=== PATIENT | male | born 1995 | race American Indian/Alaskan Native ===

== ENCOUNTER 2017-06-03 13:42 | Emergency (ER) | payer SELFPAY ==
[2017-06-03 13:54] VITALS: BP 104/45
--- NOTE | 2017-06-03 14:29 | XRay Report ---
Right wrist 3 views. History: Pain and swelling after trauma. Findings: There is a nondisplaced transverse fracture of the distal radial metaphysis. The ulnar styloid is intact. There is mild posterior soft tissue swelling. There is no dislocation. The carpal bones are normal. Impression: Nondisplaced distal radial fracture.
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
== END 2017-06-03 17:45 | disposition home or self-care (01) ==
LOC: ED 13:42
DX: S52.501A Unspecified fracture of the lower end of right radius, initial encounter for closed fracture (principal); V89.2XXA Person injured in unspecified motor-vehicle accident, traffic, initial encounter; Y93.89 Activity, other specified; Y92.89 Other specified places as the place of occurrence of the external cause; Y99.8 Other external cause status
CPT/HCPCS: 99283

== ENCOUNTER 2021-01-30 19:03 | Emergency (ER) | payer OTHER | END 2021-01-30 20:30 | disposition left against medical advice (07) | LOC: ED 19:03 | DX: N19 Unspecified kidney failure (principal); Z53.21 Procedure and treatment not carried out due to patient leaving prior to being seen by health care provider ==

== ENCOUNTER 2021-02-01 22:24 | Emergency (ER) | payer SELFPAY ==
[2021-02-01] MEDS ORDERED: LORazepam 1 MG TAB PO ONE (23:20)
[2021-02-01 23:44] LABS: Basophils # (Auto) 0.1 K/mm3 (0.0-0.1); Basophils % (Auto) 0.9 % (0.0-1.8); Eosinophils % (Auto) 0.4 % (0.0-4.3); Hematocrit 42.1 % (35.5-45.6); Hemoglobin 14.8 gm/dl (11.8-15.2); Lymphocytes # (Auto) 1.1 K/mm3 (1.2-5.4); Lymphocytes % (Auto) 10.6 % (13.4-35.0); Mean Corpuscular HGB Conc 35 % (32-34); Mean Corpuscular Volume 95 fl (84-94); Monocytes # (Auto) 0.7 K/mm3 (0.0-0.8); Monocytes % (Auto) 6.8 % (0.0-7.3); Platelet Count 218 K/mm3 (140-440); Red Blood Count 4.44 M/mm3 (3.65-5.03); Red Cell Distribution Width 13.3 % (13.2-15.2)
[2021-02-01 23:53] LABS: BUN/Creatinine Ratio 16; Blood Urea Nitrogen 23 mg/dL (9-20); Calcium 9.8 mg/dL (8.4-10.2); Hemolysis Index 4
[2021-02-02] MEDS ORDERED: SODIUM CHLORIDE 0.9% 1000 ML 1,000 ML IV ONE (00:51)
--- NOTE | 2021-02-02 00:51 | Emergency Department Report ---
ED Psych HPI - General Chief Complaint: Psych Stated Complaint: ANXIETY Time Seen by Provider: 02/01/21 23:09 Source: patient, family Mode of arrival: Ambulatory - History of Present Illness Initial Comments: Patient is a 25-year-old F [place] male who is being brought in for severe anxiety and agitation. Patient states that he was sick with some nausea vomiting last week. States he was taken to [facility] for low facility given some fluids and he states since then he has been very agitated. Patient feels like he cannot sit still and is very nervous. Patient also appears very paranoid is reluctant to answer great deal questions. - Related Data Previous Rx's Medication Instructions Recorded Last Taken Type Ibuprofen [Motrin] 600 mg PO Q8H PRN #30 tablet 06/03/17 Unknown Rx Ondansetron [Zofran Odt] 4 mg PO Q4HR PRN #20 tab.rapdis 05/09/19 Unknown Rx Promethazine [Phenergan TAB] 25 mg PO Q6HR PRN #20 tab 05/09/19 Unknown Rx Allergies Allergy/AdvReac Type Severity Reaction Status Date / Time No Known Allergies Allergy Unverified 06/03/17 13:51 ED Review of Systems ROS: Stated complaint: ANXIETY Other details as noted in HPI Comment: All other systems reviewed and negative ED Past Medical Hx - Past Medical History Previous Medical History?: No Hx GERD: Yes - Surgical History Past Surgical History?: No - Social History Smoking Status: Current Some Day Smoker Substance Use Type: Marijuana - Medications Home Medications: Home Medications Medication Instructions Recorded Confirmed Last Taken Type Ibuprofen [Motrin] 600 mg PO Q8H PRN #30 tablet 06/03/17 Unknown Rx Ondansetron [Zofran Odt] 4 mg PO Q4HR PRN #20 tab.rapdis 05/09/19 Unknown Rx Promethazine [Phenergan TAB] 25 mg PO Q6HR PRN #20 tab 05/09/19 Unknown Rx ED Physical Exam - General Limitations: No Limitations General appearance: alert, in no apparent distress - Head Head exam: Present: atraumatic, normocephalic - Eye Eye exam: Present: normal appearance, PERRL, EOMI - ENT ENT exam: Present: mucous membranes moist - Neck Neck exam: Present: normal inspection - Respiratory Respiratory exam: Present: normal lung sounds bilaterally. Absent: respiratory distress, wheezes, rales, rhonchi - Cardiovascular Cardiovascular Exam: Present: regular rate, normal rhythm, normal heart sounds. Absent: systolic murmur, diastolic murmur, rubs, gallop - GI/Abdominal GI/Abdominal exam: Present: soft, normal bowel sounds. Absent: distended, tenderness, guarding - Rectal Rectal exam: Present: deferred - Extremities Exam Extremities exam: Present: normal inspection - Back Exam Back exam: Present: normal inspection - Neurological Exam Neurological exam: Present: alert, oriented X3 - Psychiatric Psychiatric exam: Present: normal affect, normal mood - Skin Skin exam: Present: warm, dry, intact, normal color. Absent: rash ED Course Vital Signs 02/01/21 02/01/21 02/01/21 23:18 23:21 23:22 Temperature 99 F 97.4 F L Pulse Rate 99 H 80 Respiratory 18 18 18 Rate Blood Pressure 132/98 Blood Pressure 110/74 [Left] O2 Sat by Pulse 99 98 100 Oximetry - Reevaluation(s) Reevaluation #1: 02/02/21 00:51 Patient sodium and chloride level is low. Is consistent with some dehydration he does have a creatinine of 1.4 which is abnormal for his age. I will attempt to start IV on the patient and give him some fluids. Patient believes that and IV hydration place is the reason why he is feeling the way he does now. Still pending a urine. We will add a CK on the patient as well. ED Medical Decision Making - Lab Data Result diagrams: 02/01/21 23:16 02/01/21 23:16 Lab Results 02/01/21 02/01/21 02/01/21 Range/Units 23:16 23:16 23:16 WBC 10.8 (4.5-11.0) K/mm3 RBC 4.44 (3.65-5.03) M/mm3 Hgb 14.8 (11.8-15.2) gm/dl Hct 42.1 (35.5-45.6) % MCV 95 H (84-94) fl MCH 33 H (28-32) pg MCHC 35 H (32-34) % RDW 13.3 (13.2-15.2) % Plt Count 218 (140-440) K/mm3 Lymph % (Auto) 10.6 L (13.4-35.0) % [place] % (Auto) 6.8 (0.0-7.3) % Eos % (Auto) 0.4 (0.0-4.3) % Baso % (Auto) 0.9 (0.0-1.8) % Lymph # (Auto) 1.1 L (1.2-5.4) K/mm3 [place] # (Auto) 0.7 (0.0-0.8) K/mm3 Eos # (Auto) 0.0 (0.0-0.4) K/mm3 Baso # (Auto) 0.1 (0.0-0.1) K/mm3 Seg Neutrophils % 81.3 H (40.0-70.0) % Seg Neutrophils # 8.8 H (1.8-7.7) K/mm3 Sodium 130 L (137-145) mmol/L Potassium 4.0 (3.6-5.0) mmol/L Chloride 90.6 L (98-107) mmol/L Carbon Dioxide 28 (22-30) mmol/L Anion Gap 15 mmol/L BUN 23 H (9-20) mg/dL Creatinine 1.4 H (0.8-1.3) mg/dL Estimated GFR > 60 ml/min BUN/Creatinine Ratio 16 % Glucose 191 H (75-100) mg/dL Calcium 9.8 (8.4-10.2) mg/dL Salicylates < 0.3 L (2.8-20.0) mg/dL Acetaminophen (10.0-30.0) ug/mL Plasma/Serum Alcohol (0-0.07) % 02/01/21 02/01/21 Range/Units 23:16 23:16 WBC (4.5-11.0) K/mm3 RBC (3.65-5.03) M/mm3 Hgb (11.8-15.2) gm/dl Hct (35.5-45.6) % MCV (84-94) fl MCH (28-32) pg MCHC (32-34) % RDW (13.2-15.2) % Plt Count (140-440) K/mm3 Lymph % (Auto) (13.4-35.0) % [place] % (Auto) (0.0-7.3) % Eos % (Auto) (0.0-4.3) % Baso % (Auto) (0.0-1.8) % Lymph # (Auto) (1.2-5.4) K/mm3 [place] # (Auto) (0.0-0.8) K/mm3 Eos # (Auto) (0.0-0.4) K/mm3 Baso # (Auto) (0.0-0.1) K/mm3 Seg Neutrophils % (40.0-70.0) % Seg Neutrophils # (1.8-7.7) K/mm3 Sodium (137-145) mmol/L Potassium (3.6-5.0) mmol/L Chloride (98-107) mmol/L Carbon Dioxide (22-30) mmol/L Anion Gap mmol/L BUN (9-20) mg/dL Creatinine (0.8-1.3) mg/dL Estimated GFR ml/min BUN/Creatinine Ratio % Glucose (75-100) mg/dL Calcium (8.4-10.2) mg/dL Salicylates (2.8-20.0) mg/dL Acetaminophen 5.0 L (10.0-30.0) ug/mL Plasma/Serum Alcohol < 0.01 (0-0.07) % Critical care attestation.: If time is entered above; I have spent that time in minutes in the direct care of this critically ill patient, excluding procedure time. ED Disposition Condition: Stable Referrals: PRIMARY CARE, [Primary Care Provider] - 3-5 Days
[2021-02-02 01:42] LABS: Bilirubin,Urine NEG (Negative); Blood,Urine NEG (Negative); Color,Urine Yellow (Yellow); Mucus,Urine FEW /HPF; Protein,Urine <15 mg/dL mg/dL (Negative); Urobilinogen,Urine < 2.0 mg/dL (<2.0)
[2021-02-02 01:51] LABS: Amphetamine Screen,Urine PRESUMPTIVE NEGATIVE; Benzodiazepines Screen,Urine PRESUMPTIVE NEGATIVE; Cannabinoid Screen,Urine PRESUMPTIVE POSITIVE; Cocaine Screen,Urine PRESUMPTIVE NEGATIVE; Methadone Screen,Urine PRESUMPTIVE NEGATIVE; Opiate Screen,Urine PRESUMPTIVE NEGATIVE
--- NOTE | 2021-02-02 09:02 | Consultation ---
History of Present Illness - Reason for Consult Consult date: 02/02/21 Reason for consult: psychosis - History of Present Psychiatric Illness Per ER Note: Patient is a 25-year-old F [place] male who is being brought in for severe anxiety and agitation. Patient states that he was sick with some nausea vomiting last week. States he was taken to [facility] for low facility given some fluids and he states since then he has been very agitated. Patient feels l chuck he cannot sit still and is very nervous. Patient also appears very paranoid is reluctant to answer great deal questions. Rolo Pederson is a 25y/o male patient who states he came to the ER because he "was having an episode." The patient is tearful and seems very depressed. His affect if flat. He doesn't answer questions directly. He says "yall are not treating me right. I came in here to get help not to get forced to stay here." He would not tell me about his "episode." He says "I don't trust nobody." The patient then starts telling me that he "went to some [facility] for fluids and it went to my head." I ask him again to explain what he meant by an episode. He replies "I'm not telling you anything. That's going to give you more reasons to keep me here." The patient then starts to cry harder. He would not give consent for me to call his mother. He says "she doesn't understand me just like you don't." He denies having any psych history or being on any medications. The patient also denies SI/HI, but then states "I shouldn't even answer this." Psych History Diagnoses: Denies Suicide attempts or Self-harm behavior:Denies Prior psychiatric hospitalizations: Denies Substance Abuse history:Denies Previous psychiatric medications tried:Denies Outpatient treatment: Denies PAST MEDICAL HISTORY: none reported Family Psychiatric History: None reported or documented SOCIAL HISTORY Marital Status: Single Living Arrangements: with mother Employment Status: unemployed Access to guns/weapons: Denies Education: History of Abuse: Denies Legal History: none reported REVIEW OF SYSTEMS Constitutional: Negative for weight loss ENT: Negative for stridor Respiratory: Negative for cough or hemoptysis All other systems reviewed and are negative MENTAL STATUS EXAMINATION General Appearance and Behavior: Age appropriate, good hygiene, wearing appropriate clothes, sleeping, cooperative Cooperation: Participating Psychomotor Behavior: unremarkable and within normal limits Mood: Affect and affective range: flat, tearful Thought Process: illogical Thought Content: depression Speech: Normal volume, Regular rate and rhythm, Suicidal Ideation: Denies Homicidal Ideation:Denies Hallucinations: Denies Delusions: Paranoid Impulse Control: Questionable Insight and Judgment: Limited insight and poor judgment, Memory: Normal, Attention: Normal Orientation: Alert, oriented Assessment Acute Psychosis Treatment Plan 1013 Risperidone 0.5mg po BID Depakote DR 125mg po BID Continue previously prescribed medications The patient to comply with previously prescribed medications Risks, benefits and alternatives of medications discussed with the patient, questions answered and consent obtained from patient. PSYCHOTHERAPY: Supportive psychotherapy provided MEDICAL: Per primary team DELIRIUM PRECAUTIONS: Please re-orient patient frequently, keep lights on during the day, and minimize benzodiazepines and opiates as these medications could worsen patient's confusion. COPY TECHNICIAN: Defer to primary Disposition: Recommend acute psychiatric inpatient treatment. [facility] will provide patient with out patient resources. Will follow. Thank you for the consult. Please contact with any questions and/or concerns. Case staffed with Dr. Bee Medications and Allergies Allergies Allergy/AdvReac Type Severity Reaction Status Date / Time No Known Allergies Allergy Unverified 06/03/17 13:51 Home Medications Medication Instructions Recorded Confirmed Last Taken Type Ibuprofen [Motrin] 600 mg PO Q8H PRN #30 tablet 06/03/17 Unknown Rx Ondansetron [Zofran Odt] 4 mg PO Q4HR PRN #20 tab.rapdis 05/09/19 Unknown Rx Promethazine [Phenergan TAB] 25 mg PO Q6HR PRN #20 tab 05/09/19 Unknown Rx Mental Status Exam - Vital signs Last Vital Signs Temp 97.2 F L 02/02/21 01:52 Pulse 83 02/02/21 01:52 Resp 18 02/02/21 01:52 BP 116/66 02/02/21 01:52 Pulse Ox 99 02/02/21 01:52 Results Result Diagrams: 02/01/21 23:16 02/01/21 23:16 Abnormal lab results 02/01/21 02/01/21 02/01/21 Range/Units 23:16 23:16 23:16 MCV 95 H (84-94) fl MCH 33 H (28-32) pg MCHC 35 H (32-34) % Lymph % (Auto) 10.6 L (13.4-35.0) % Lymph # (Auto) 1.1 L (1.2-5.4) K/mm3 Seg Neutrophils % 81.3 H (40.0-70.0) % Seg Neutrophils # 8.8 H (1.8-7.7) K/mm3 Sodium 130 L (137-145) mmol/L Chloride 90.6 L (98-107) mmol/L BUN 23 H (9-20) mg/dL Creatinine 1.4 H (0.8-1.3) mg/dL Glucose 191 H (75-100) mg/dL Total Creatine Kinase (55-170) units/L Salicylates < 0.3 L (2.8-20.0) mg/dL Acetaminophen (10.0-30.0) ug/mL 02/01/21 02/01/21 Range/Units 23:16 23:16 MCV (84-94) fl MCH (28-32) pg MCHC (32-34) % Lymph % (Auto) (13.4-35.0) % Lymph # (Auto) (1.2-5.4) K/mm3 Seg Neutrophils % (40.0-70.0) % Seg Neutrophils # (1.8-7.7) K/mm3 Sodium (137-145) mmol/L Chloride (98-107) mmol/L BUN (9-20) mg/dL Creatinine (0.8-1.3) mg/dL Glucose (75-100) mg/dL Total Creatine Kinase 352 H (55-170) units/L Salicylates (2.8-20.0) mg/dL Acetaminophen 5.0 L (10.0-30.0) ug/mL All other labs normal.
[2021-02-02] MEDS: risperiDONE 0.25 MG TAB PO SCH ×3 (10:29→22:29)
[2021-02-02] MEDS: DIVALPROEX DR 125 MG TAB PO SCH ×3 (10:29→22:29)
--- NOTE | 2021-02-02 11:12 | Event Note ---
Date: 02/02/21 S: No events overnight O: Vital Signs - 8 hr 02/02/21 07:27 Temperature 98.6 F Pulse Rate 68 Respiratory 18 Rate Blood Pressure 112/70 [Left] O2 Sat by Pulse 100 Oximetry A: Acute psychosis P: 1013/awaiting inpatient psych placement
[2021-02-03] MEDS: DIVALPROEX DR 125 MG TAB PO SCH (09:47)
[2021-02-03] MEDS: risperiDONE 0.25 MG TAB PO SCH (09:47)
--- NOTE | 2021-02-03 10:05 | Progress Note ---
Subjective - Reason for Consult Consult date: 02/03/21 Reason for consult: depression - Chief Complaint Chief complaint: The patient was seen today. He appears severely depressed. His affect is flat. He immediately starts crying when I start to speak with him. He says "it's just a bad month for me. I lost a child a few years ago and it's been hard." He denies SI/HI, however the patient doesn't seem to be upfront about what's going on with him. He's also paranoid. He states he doesn't trust anyone. The patient gave me permission to speak with his mother. His mother says she doesn't feel safe with the patient coming back to her house. She says he was talking out of his head, and acting strange. She says the patient has been severely depressed and this was the first time he had a "real episode like this." She says he wasn't making any sense and acting strange. She says they don't have the best relationship but she doesn't believe he's telling the truth about what's going on. REVIEW OF SYSTEMS Constitutional: Negative for weight loss ENT: Negative for stridor Respiratory: Negative for cough or hemoptysis All other systems reviewed and are negative MENTAL STATUS EXAMINATION General Appearance and Behavior: Age appropriate, good hygiene, wearing appropriate clothes, sleeping, cooperative Cooperation: Participating Psychomotor Behavior: unremarkable and within normal limits Mood: Affect and affective range: flat, tearful Thought Process: illogical Thought Content: depression Speech: Normal volume, Regular rate and rhythm, Suicidal Ideation: Denies Homicidal Ideation:Denies Hallucinations: Denies Delusions: Paranoid Impulse Control: Questionable Insight and Judgment: Limited insight and poor judgment, Memory: Normal, Attention: Normal Orientation: Alert, oriented Assessment Acute Psychosis Treatment Plan 1013 Increase Risperidone 1mg po BID Depakote DR 125mg po BID Start Zoloft 25mg po daily Continue previously prescribed medications The patient to comply with previously prescribed medications Risks, benefits and alternatives of medications discussed with the patient, questions answered and consent obtained from patient. PSYCHOTHERAPY: Supportive psychotherapy provided MEDICAL: Per primary team DELIRIUM PRECAUTIONS: Please re-orient patient frequently, keep lights on during the day, and minimize benzodiazepines and opiates as these medications could worsen patient's confusion. COMMUNICATIONS DIRECTOR: Defer to primary Disposition: Recommend acute psychiatric inpatient treatment. Database Admin will provide patient with out patient resources. Will follow. Thank you for the consult. Please contact with any questions and/or concerns. Case staffed with Dr. Bee Mental Status Exam - Vital signs Last Vital Signs Temp 98.3 F 02/03/21 02:23 Pulse 80 02/03/21 02:23 Resp 16 02/03/21 02:23 BP 111/78 02/03/21 02:23 Pulse Ox 98 02/03/21 02:23
--- NOTE | 2021-02-03 10:37 | Event Note ---
Date: 02/03/21 S: "I feel sad but that's normal given my situation." Patient denies any SI, HI. He denies any further hallucinations. Patient states he feels as if the medication is working. States he has been able to get some needed rest while here. Patient is ready to go home. States he has a job working at a [employer] and does not want to lose it. Patient denies any previous psychiatric diagnosis. O: Vital signs stable. Patient is calm and cooperative. A: Acute psychosis P: Lorenza, psychiatry DISC PAD GRINDER, spoke with patient. States that during her assessment patient immediately started crying, was reluctant to speak with her, seemed to be holding back information. She states when she spoke with patient's mother, she relayed that patient has a longstanding psychiatric history, and a history of not taking his medication and not seeking help. Continue 1013.
[2021-02-03] MEDS: FLUoxetine 10 MG TAB PO SCH (12:00)
[2021-02-03 12:19] LABS: BUN/Creatinine Ratio 15; Blood Urea Nitrogen 15 mg/dL (9-20); Calcium 9.5 mg/dL (8.4-10.2); Hemolysis Index 11
--- NOTE | 2021-02-03 12:22 | Electrocardiograph Report ---
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
[2021-02-03] MEDS ORDERED: LORazepam 2 MG/ML VIAL IM ONE (13:45)
[2021-02-04] MEDS: DIVALPROEX DR 125 MG TAB PO SCH ×2 (02:56→10:16)
[2021-02-04] MEDS: risperiDONE 1 MG TAB PO SCH ×2 (02:56→10:17)
[2021-02-04 09:00] VITALS: BP 123/80
--- NOTE | 2021-02-04 09:27 | Progress Note ---
Subjective - Reason for Consult Consult date: 02/04/21 Reason for consult: depression - Chief Complaint Chief complaint: The patient was seen today. He appears to be feeling better. He still verbalized feeling depressed. He says "the meds are working and I need ongoing therapy." He says "the meds have been helping with my mood." The patient says, "when I came here I didn't really understand the process. I thought meds and a counselor." The patient denies SI/HI, he says "I was never that. Just depressed." I assured him that I just wanted what was best for him. The patient states he understood. He says "I know, but really this place makes me feel worse." The patient says he has to go to work tomorrow. 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 He denies hallucinations of any kind. REVIEW OF SYSTEMS Constitutional: Negative for weight loss ENT: Negative for stridor Respiratory: Negative for cough or hemoptysis All other systems reviewed and are negative MENTAL STATUS EXAMINATION General Appearance and Behavior: Age appropriate, good hygiene, wearing appropriate clothes, sleeping, cooperative Cooperation: Participating Psychomotor Behavior: unremarkable and within normal limits Mood: Affect and affective range: flat, tearful Thought Process: illogical Thought Content: depression Speech: Normal volume, Regular rate and rhythm, Suicidal Ideation: Denies Homicidal Ideation:Denies Hallucinations: Denies Delusions: Paranoid Impulse Control: Questionable Insight and Judgment: Limited insight and poor judgment, Memory: Normal, Attention: Normal Orientation: Alert, oriented Assessment Acute Psychosis Treatment Plan D/c 1013 Risperidone 1mg po BID Depakote DR 125mg po BID Zoloft 25mg po daily Continue previously prescribed medications The patient to comply with previously prescribed medications Risks, benefits and alternatives of medications discussed with the patient, questions answered and consent obtained from patient. PSYCHOTHERAPY: Supportive psychotherapy provided MEDICAL: Per primary team DELIRIUM PRECAUTIONS: Please re-orient patient frequently, keep lights on during the day, and minimize benzodiazepines and opiates as these medications could worsen patient's confusion. 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 Head Track Coach will provide patient with out patient resources. The patient is to establish and follow up with outpatient psych in 7 to 14 days upon discharge. The coal inspector to provide him with all necessary outpatient resources. Will sign off. Thank you for the consult. Please contact with any questions and/or concerns. Case staffed with Dr. Bee Mental Status Exam - Vital signs Last Vital Signs Temp 97.9 F 02/04/21 08:58 Pulse 77 02/04/21 08:58 Resp 18 02/04/21 08:58 BP 123/80 02/04/21 08:58 Pulse Ox 98 02/04/21 08:58
--- NOTE | 2021-02-04 09:50 | Emergency Department Report ---
Blank Doc - Documentation Documentation: Patient was resting this morning. Psychiatric services has evaluated the tobias ent and cleared the patient for discharge. It was not felt the patient represented a risk of self-harm at this time and could safely be discharged.
[2021-02-04] MEDS: FLUoxetine 10 MG TAB PO SCH (10:16)
== END 2021-02-04 10:18 | disposition home or self-care (01) ==
LOC: ED 22:24
DX: F41.8 Other specified anxiety disorders (principal); F60.0 Paranoid personality disorder; K21.9 Gastro-esophageal reflux disease without esophagitis; F17.290 Nicotine dependence, other tobacco product, uncomplicated; Z20.822 Contact with and (suspected) exposure to COVID-19
CPT/HCPCS: 36415; 80048; 80307; 81001; 82550; 85025; 93005; 96372; 99284; J2060; U0003; 80320; G0480

== ENCOUNTER 2021-05-22 21:51 | Emergency (ER) | payer SELFPAY ==
[2021-05-22] MEDS ORDERED: DICYCLOMINE 20 MG/2 ML INJ IM ONE (22:16)
[2021-05-22] MEDS ORDERED: SODIUM CHLORIDE 0.9% 1000 ML 1,000 ML IV ONE (22:16)
[2021-05-22] MEDS ORDERED: ONDANSETRON 4 MG/2 ML INJ IV ONE (22:16)
--- NOTE | 2021-05-22 22:19 | Event Note ---
ED Screening Note Date of service: 05/22/21 Time: 22:17 ED Screening Note: Is a 25-year-old male who presents with nausea vomiting diarrhea body aches cough x1 week states unable to tolerate p.o., last p.o. intake 3 days ago. Patient states history of GERD, psych depression. Patient endorses THC This initial assessment/diagnostic orders/clinical plan/treatment(s) is/are subject to change based on patients health status, clinical progression and re- assessment by fellow clinical providers in the ED. Further treatment and workup at subsequent clinical providers discretion. Patient/guardian urged not to elope from the ED as their condition may be serious if not clinically assessed and daryl bardales. Initial orders include: CBC, CMP Lipase, UA, IV, NS 1 liter, Javon Mendozayl
[2021-05-22 22:20] VITALS: BP 113/86
--- NOTE | 2021-05-22 22:48 | XRay Report ---
CHEST 1 VIEW INDICATION: cough fever cp. COMPARISON: None FINDINGS: SUPPORT DEVICES: None. HEART: Within normal limits. LUNGS/PLEURA: No acute air space or interstitial disease. ADDITIONAL FINDINGS: None. IMPRESSION: 1. No acute findings. Signer Name: Moses Mcmahon MD Signed: 05/22/2021 10:43 PM Workstation Name: [id number]
[2021-05-22 23:51] LABS: Basophils % (Auto) 0.4 % (0.0-1.8); Eosinophils % (Auto) 0.1 % (0.0-4.3); Lymphocytes # (Auto) 1.3 K/mm3 (1.2-5.4); Lymphocytes % (Auto) 11.6 % (13.4-35.0); Mean Corpuscular HGB Conc 33 % (32-34); Mean Corpuscular Volume 94 fl (84-94); Monocytes # (Auto) 1.3 K/mm3 (0.0-0.8); Monocytes % (Auto) 12.1 % (0.0-7.3); Platelet Count 244 K/mm3 (140-440); Red Blood Count 6.76 M/mm3 (3.65-5.03); Red Cell Distribution Width 13.9 % (13.2-15.2)
[2021-05-23 00:02] LABS: Hematocrit 63.3 % (35.5-45.6); Hemoglobin 21.1 gm/dl (11.8-15.2)
[2021-05-23 00:10] LABS: Albumin 5.7 g/dL (3.9-5); Calcium 10.6 mg/dL (8.4-10.2)
== END 2021-05-23 01:59 | disposition left against medical advice (07) ==
LOC: ED 21:51
DX: R11.2 Nausea with vomiting, unspecified (principal); Z53.21 Procedure and treatment not carried out due to patient leaving prior to being seen by health care provider
CPT/HCPCS: 36415; 71045; 80053; 83690; 85025

== ENCOUNTER 2021-05-24 11:05 | Inpatient (IN) | payer SELFPAY ==
--- NOTE | 2021-05-24 12:37 | Event Note ---
ED Screening Note Date of service: 05/24/21 Time: 12:28 ED Screening Note: 25-year-old -[place] male comes in complaining of severe abdominal pain. Patient reports that he has not been able to eat and has been nausea and vomiting for the last 10 days. It was noted review of patient's chart that he came in on the 11 and basic labs were ordered and it showed that his H&H was 21.1 and 63.3. All his liver functions were all abnormal and he had acute kidney injury. Patient did not stay to be evaluated. This initial assessment/diagnostic orders/clinical plan/treatment(s) is/are subject to change based on patients health status, clinical progression and re- assessment by fellow clinical providers in the ED. Further treatment and workup at subsequent clinical providers discretion. Patient/guardian urged not to elope from the ED as their condition may be serious if not clinically assessed and managed. Initial orders include: CBC CMP lipase urinalysis PT PTT BNP chest x-ray report given to
[2021-05-24] MEDS ORDERED: SODIUM CHLORIDE 0.9% 1000 ML 1,000 ML IV ONE ×2 (12:56)
[2021-05-24] MEDS ORDERED: fentaNYL 100 MCG/2 ML INJ IV ONE (12:56)
[2021-05-24] MEDS ORDERED: ONDANSETRON 4 MG/2 ML INJ IV ONE ×2 (12:56→18:10)
--- NOTE | 2021-05-24 13:00 | XRay Report ---
CHEST 2 VIEWS INDICATION: sob,cough and rales. COMPARISON: 05/22/2021 FINDINGS: Support devices: None. Heart: Heart size is within normal limits. A right aortic arch is suggested. Lungs/pleura: No acute air space or interstitial disease. No pleural abnormality or pneumothorax. Additional findings: None. IMPRESSION: No acute findings. A right aortic arch is suspected. Signer Name: Kevin Dueñas Jr, MD Signed: 05/24/2021 12:55 PM Workstation Name: [id number]
--- NOTE | 2021-05-24 13:04 | Emergency Department Report ---
HPI - General Chief Complaint: Abdominal Pain Time Seen by Provider: 05/24/21 11:17 - HPI HPI: MSE 6 The patient is a 25-year-old male present with a chief complaint of abdominal pain nausea vomiting. Patient states he has been "sick" for the past 10 days with symptoms consisting mostly of nausea vomiting and abdominal pain. Patient complains of periumbilical abdominal pain in addition to abdominal soreness from his frequent nausea vomiting. The patient states he has not eaten in 1 week and occasionally is able to keep down water. Patient denies having history of cough or rhinorrhea. Patient states he is uncertain if he had a fever. Patient denies diarrhea. Patient currently gets his abdominal pain a score of 7/10. Patient came to the ED 2 days ago but left without being seen ED Past Medical Hx - Past Medical History Previous Medical History?: Yes Hx GERD: Yes Additional medical history: mental health - Surgical History Past Surgical History?: No - Family History Family history: no significant - Social History Smoking Status: Never Smoker Substance Use Type: None (Denies illicit drug use) - Medications Home Medications: Home Medications Medication Instructions Recorded Confirmed Last Taken Type Ibuprofen [Motrin] 600 mg PO Q8H PRN #30 tablet 06/03/17 Unknown Rx Ondansetron [Zofran Odt] 4 mg PO Q4HR PRN #20 tab.rapdis 05/09/19 Unknown Rx Promethazine [Phenergan TAB] 25 mg PO Q6HR PRN #20 tab 05/09/[address] [DepaKOTE DR] 250 mg PO BID #60 tablet 02/04/21 Unknown Rx Sertraline [Zoloft] 50 mg PO QDAY #30 tablet 02/04/21 Unknown Rx risperiDONE [RisperDAL] 1 mg PO BID #60 tablet 02/04/21 Unknown Rx ED Review of Systems ROS: Stated complaint: ABD PAIN/VOMITNG Other details as noted in HPI Constitutional: fever (?) Eyes: denies: eye pain ENT: denies: throat pain Respiratory: denies: cough Cardiovascular: denies: chest pain Endocrine: no symptoms reported Gastrointestinal: abdominal pain, nausea, vomiting. denies: diarrhea Genitourinary: denies: dysuria Musculoskeletal: back pain Neurological: denies: headache Physical Exam - Physical Exam Vital Signs: Vital Signs 01/13/22 11:45 Pulse Rate 74 Respiratory 16 Rate Blood Pressure 114/79 [Left] O2 Sat by Pulse 99 Oximetry Physical Exam: GENERAL: The patient is well-developed well-nourished male lying on stretcher in position appearing to be in mild. [] HEENT: Normocephalic. Atraumatic. Extraocular motions are intact. Patient has moist mucous membranes. NECK: Supple. Trachea midline CHEST/LUNGS: Clear to auscultation. There is no respiratory distress noted. HEART/CARDIOVASCULAR: Regular. There is no tachycardia. There is no gallop rub or murmur. ABDOMEN: Abdomen is soft, with greatest tenderness in the periumbilical and right upper quadrant. Patient has normal bowel sounds. There is no abdominal distention. SKIN: There is no rash. There is no edema. There is no diaphoresis. NEURO: The patient is awake, alert, and oriented. The patient is cooperative. The patient has no focal neurologic deficits. The patient has normal speech. GCS 15 MUSCULOSKELETAL: There is CVA tenderness bilaterally. There is no evidence of acute injury. ED Course Vital Signs 05/24/21 11:45 Pulse Rate 74 Respiratory 16 Rate Blood Pressure 114/79 [Left] O2 Sat by Pulse 99 Oximetry ED Medical Decision Making - Lab Data Result diagrams: 05/24/21 12:22 05/24/21 12:23 Laboratory Tests 05/24/21 05/24/21 05/24/21 12:22 12:23 12:27 WBC 5.8 RBC 6.33 H Hgb 19.9 H Hct 58.5 H MCV 93 MCH 31 MCHC 34 RDW 13.3 Plt Count 211 Lymph % (Auto) 13.2 L [place] % (Auto) 11.7 H Eos % (Auto) 0.1 Baso % (Auto) 1.4 Lymph # (Auto) 0.8 L [place] # (Auto) 0.7 Eos # (Auto) 0.0 Baso # (Auto) 0.1 Seg Neutrophils % 73.6 H Seg Neutrophils # 4.2 PT 14.6 INR 1.03 APTT 32.6 Sodium 122 L Potassium 4.4 Chloride 78.5 L Carbon Dioxide 30 Anion Gap 18 BUN 34 H Creatinine 1.5 H Estimated GFR > 60 BUN/Creatinine Ratio 23 Glucose 99 Calcium 10.6 H Total Bilirubin 3.10 H AST 161 H ALT 73 H Alkaline Phosphatase 129 NT-Pro-B Natriuret Pep Total Protein 8.7 H Albumin 5.2 H Albumin/Globulin Ratio 1.5 Lipase 24 Urine Color Urine Turbidity Urine pH Ur Specific [place] Urine Protein Urine Glucose (UA) Urine Ketones Urine Blood Urine Nitrite Urine Bilirubin Urine Urobilinogen Ur Leukocyte Esterase Urine WBC (Auto) Urine RBC (Auto) U Epithel Cells (Auto) Urine Mucus Hepatitis A IgM Ab Hep Bs Antigen Hep B Core IgM Ab Hepatitis C Antibody 05/24/21 05/24/21 05/24/21 12:28 13:09 Unknown WBC RBC Hgb Hct MCV MCH MCHC RDW Plt Count Lymph % (Auto) [place] % (Auto) Eos % (Auto) Baso % (Auto) Lymph # (Auto) [place] # (Auto) Eos # (Auto) Baso # (Auto) Seg Neutrophils % Seg Neutrophils # PT INR APTT Sodium Potassium Chloride Carbon Dioxide Anion Gap BUN Creatinine Estimated GFR BUN/Creatinine Ratio Glucose Calcium Total Bilirubin AST ALT Alkaline Phosphatase NT-Pro-B Natriuret Pep 42.82 Total Protein Albumin Albumin/Globulin Ratio Lipase Urine Color Yellow Urine Turbidity Clear Urine pH 6.0 Ur Specific [place] 1.021 Urine Protein 30 mg/dl Urine Glucose (UA) Neg Urine Ketones 20 Urine Blood Mod Urine Nitrite Neg Urine Bilirubin Neg Urine Urobilinogen < 2.0 Ur Leukocyte Esterase Neg Urine WBC (Auto) 1.0 Urine RBC (Auto) 2.0 U Epithel Cells (Auto) < 1.0 Urine Mucus Few Hepatitis A IgM Ab Non-reactive Hep Bs Antigen Nonreactive Hep B Core IgM Ab Non-reactive Hepatitis C Antibody Non-reactive Monospot test pending - Radiology Data Radiology results: report reviewed (CT abdomen pelvis, chest x-ray), image reviewed (CT abdomen pelvis, chest x-ray) interpreted by me: Chest x-ray-no definite focal infiltrates, no pneumothorax [facility] [address] [place] [address] XRay Report Signed Patient: JOSE ROBERTO EDGE MR #: [id number] : 04/27/1957 Acct:[id number] Age/Sex: 64 / M ADM Date: 05/24/21 Loc: ED At [facility] Dr: Ordering Physician: KRYSTLE MONIQUE MD Date of Service: 05/24/21 Procedure(s): XR chest 1V ap Accession Number(s): [id number] cc: KRYSTLE MONIQUE MD Fluoro Time In Minutes: CHEST 1 VIEW 1214 hours INDICATION: Status post cardiac arrest. COMPARISON: None FINDINGS: Support devices: An endotracheal tube has been inserted which terminates 5.3 cm superior to the elder. Cardiac defibrillator pads are in place. Heart: Heart size is within normal limits. CABG changes are suspected. Lungs/Pleura: The lungs are clear with no evidence for infiltrate, pleural fluid or pneumothorax. Additional findings: None. IMPRESSION: The endotracheal tube terminates 5.3 cm superior to the elder. No acute process is appreciated in the chest. Signer Name: Kevin Dueñas Jr, MD Signed: 05/24/2021 12:55 PM Workstation Name: [id number] Transcribed By: TTR Dictated By: KEVIN DUEÑAS JR, MD Electronically Authenticated By: KEVIN DUEÑAS JR, MD Signed Date/Time: 05/24/21 1255 DD/ 1253 TD/TT: Print Cancel [address] [address] XRay Report Signed Patient: PIERO ABDI MR#: [id number] : 1995 Acct:[id number] Age/Sex: 25 / M ADM Date: 05/24/21 Loc: ED Attending Dr: Ordering Physician: TRISTA HOOD Date of Service: 05/24/21 Procedure(s): XR chest routine 2V Accession Number(s): [id number] cc: TRISTA HOOD Fluoro Time In Minutes: CHEST 2 VIEWS INDICATION: sob,cough and rales. COMPARISON: 05/22/2021 FINDINGS: Support devices: None. Heart: Heart size is within normal limits. A right aortic arch is suggested. Lungs/pleura: No acute air space or interstitial disease. No pleural abnormality or pneumothorax. Additional findings: None. IMPRESSION: No acute findings. A right aortic arch is suspected. Signer Name: Kevin Dueñas Jr, MD Signed: 05/24/2021 12:55 PM Workstation Name: [id number] Transcribed By: TTR Dictated By: KEVIN DUEÑAS JR, MD Electronically Authenticated By: KEVIN DUEÑAS JR, MD Signed Date/Time: 05/24/211254 DD/ 54 TD/TT: Print Cancel - Differential Diagnosis Hepatitis, small bowel obstruction, pancreatitis, dehydration Critical care attestation.: If time is entered above; I have spent that time in minutes in the direct care of this critically ill patient, excluding procedure time. ED Disposition Clinical Impression: Intractable nausea and vomiting, Hyponatremia, Dehydration, Transaminitis, Acute abdominal pain Disposition: ADMITTED INPATIENT Is pt being admited?: Yes Does the pt Need Aspirin: No Condition: Fair Referrals: PRIMARY CARE, [Primary Care Provider] - 3-5 Days Time of Disposition: 15:11 (Hospitalist notified (Dr. Greenfield))
[2021-05-24 13:36] LABS: Basophils # (Auto) 0.1 K/mm3 (0.0-0.1); Basophils % (Auto) 1.4 % (0.0-1.8); Eosinophils % (Auto) 0.1 % (0.0-4.3); Hematocrit 58.5 % (35.5-45.6); Hemoglobin 19.9 gm/dl (11.8-15.2); Lymphocytes # (Auto) 0.8 K/mm3 (1.2-5.4); Lymphocytes % (Auto) 13.2 % (13.4-35.0); Mean Corpuscular HGB Conc 34 % (32-34); Mean Corpuscular Volume 93 fl (84-94); Monocytes # (Auto) 0.7 K/mm3 (0.0-0.8); Monocytes % (Auto) 11.7 % (0.0-7.3); Platelet Count 211 K/mm3 (140-440); Red Blood Count 6.33 M/mm3 (3.65-5.03); Red Cell Distribution Width 13.3 % (13.2-15.2)
[2021-05-24 13:52] LABS: Alanine Aminotransferase 73 units/L (7-56); Albumin 5.2 g/dL (3.9-5); BUN/Creatinine Ratio 23; Blood Urea Nitrogen 34 mg/dL (9-20); Calcium 10.6 mg/dL (8.4-10.2); Hemolysis Index 23
[2021-05-24 14:06] LABS: Hepatitis C Virus Antibody Non-Reactive (NonReactive)
[2021-05-24 14:08] LABS: Hepatitis B Surface Antigen Nonreactive (Negative)
[2021-05-24 14:29] LABS: Bilirubin,Urine NEG (Negative); Blood,Urine MOD (Negative); Color,Urine Yellow (Yellow); Mucus,Urine FEW /HPF; Urobilinogen,Urine < 2.0 mg/dL (<2.0)
--- NOTE | 2021-05-24 15:02 | Cat Scan Report ---
CT ABDOMEN AND PELVIS WITH CONTRAST INDICATION / CLINICAL INFORMATION: Periumbilical abdominal pain, intractable nausea omni 300 100ml. TECHNIQUE: Axial CT images were obtained through the abdomen and pelvis after 100 cc of Omnipaque 300 IV contras t. Sagittal and coronal reformatted images. All CT scans at this location are performed using CT dose reduction for ALARA by means of automated exposure control. COMPARISON: None available. FINDINGS: LOWER CHEST: No significant abnormality. LIVER: No significant abnormality. GALLBLADDER: No significant abnormality. BILE DUCTS: No significant abnormality. PANCREAS: No significant abnormality. SPLEEN: No significant abnormality. ADRENALS: No significant abnormality. RIGHT KIDNEY and URETER: No significant abnormality. LEFT KIDNEY and URETER: No significant abnormality. STOMACH and SMALL BOWEL: No significant abnormality. COLON: No significant abnormality. APPENDIX: Not identified. No inflammatory changes in the right lower quadrant are appreciated to sugg est appendicitis. PERITONEUM: No free fluid. No free air. No fluid collection. LYMPH NODES: No significant adenopathy. AORTA and ARTERIES: No significant abnormality. IVC and VEINS: No significant abnormality. URINARY BLADDER: No significant abnormality. REPRODUCTIVE ORGANS: No significant abnormality. ADDITIONAL FINDINGS: None. SKELETAL SYSTEM: No significant abnormality. IMPRESSION: No significant abnormality. Signer Name: Kevin Dueñas Jr, MD Signed: 05/24/2021 2:57 PM Workstation Name: [id number]
[2021-05-24 15:04] LABS: INR 1.03 (0.87-1.13)
[2021-05-24 15:05] LABS: Partial Thromboplastin Time 32.6 Sec. (24.2-36.6)
--- NOTE | 2021-05-25 02:01 | History and Physical Report ---
History of Present Illness Date of examination: 05/24/21 Date of admission: 05/24/2021 Chief complaint: Persistent vomiting for 10 days History of present illness: 25-year-old male with history of mental health disease on Depakote Zoloft and Risperdal comes in for vomiting for the past 10 days. Nausea and vomiting associated with diffuse abdominal pain. Vomiting about 6-8 times a day. Patient states he has not eaten for 1 week and unable to keep anything down. Patient is on Motrin. Denies diarrhea. No fever or chills. No exposure to COVID. Vaccination status not known. - Past Medical History Previous Medical History?: Yes --GERD: Yes Additional medical history: mental health - Surgical History Past Surgical History?: No - Family History Family history: no significant - Social History Smoking Status: Never Smoker Substance Use Type: None (Denies illicit drug use) - Medications Home Medications: Home Medications Medication Instructions Recorded Confirmed Last Taken Type Ibuprofen [Motrin] 600 mg PO Q8H PRN #30 tablet 06/03/17 Unknown Rx Ondansetron [Zofran Odt] 4 mg PO Q4HR PRN #20 tab.rapdis 05/09/19 Unknown Rx Promethazine [Phenergan TAB] 25 mg PO Q6HR PRN #20 tab 05/09/[address] [DepaKOTE DR] 250 mg PO BID #60 tablet 02/04/21 Unknown Rx Sertraline [Zoloft] 50 mg PO QDAY #30 tablet 02/04/21 Unknown Rx risperiDONE [RisperDAL] 1 mg PO BID #60 tablet 02/04/21 Unknown Rx Review of Systems ROS: Stated complaint: ABD PAIN/VOMITNG Other details as noted in HPI Constitutional: fever (?) Eyes: denies: eye pain ENT: denies: throat pain Respiratory: denies: cough Cardiovascular: denies: chest pain Endocrine: no symptoms reported Gastrointestinal: abdominal pain, nausea, vomiting. denies: diarrhea Genitourinary: denies: dysuria Musculoskeletal: back pain Neurological: denies: headache Medications and Allergies Allergies Allergy/AdvReac Type Severity Reaction Status Date / Time No Known Allergies Allergy Unverified 06/03/17 13:51 Home Medications Medication Instructions Recorded Confirmed Last Taken Type Ibuprofen [Motrin] 600 mg PO Q8H PRN #30 tablet 06/03/17 Unknown Rx Ondansetron [Zofran Odt] 4 mg PO Q4HR PRN #20 tab.rapdis 05/09/19 Unknown Rx Promethazine [Phenergan TAB] 25 mg PO Q6HR PRN #20 tab 05/09/[address] [DepaKOTE DR] 250 mg PO BID #60 tablet 02/04/21 Unknown Rx Sertraline [Zoloft] 50 mg PO QDAY #30 tablet 02/04/21 Unknown Rx risperiDONE [RisperDAL] 1 mg PO BID #60 tablet 02/04/21 Unknown Rx Exam - Constitutional Vitals: Temp Pulse Resp BP Pulse Ox 97.5 F L 64 14 127/85 100 05/24/21 14:06 05/24/21 14:06 05/24/21 14:22 05/24/21 14:06 05/24/21 14:06 General appearance: Present: no acute distress, well-nourished - EENT Eyes: Present: PERRL ENT: hearing intact, clear oral mucosa - Neck Neck: Present: supple, normal ROM - Respiratory Respiratory effort: normal Respiratory: bilateral: CTA - Cardiovascular Heart rate: 78 Rhythm: regular Heart Sounds: Present: S1 & S2. Absent: rub, click - Extremities Extremities: pulses symmetrical, No edema Peripheral Pulses: within normal limits - Abdominal General gastrointestinal: Present: soft, non-tender, non-distended, normal bowel sounds Localized gastrointestinal: tender: diffuse Male genitourinary: Present: normal - Integumentary Integumentary: Present: clear, warm, dry - Musculoskeletal Musculoskeletal: gait normal, strength equal bilaterally - Psychiatric Psychiatric: appropriate mood/affect, intact judgment & insight - Neurologic Neurologic: CNII-XII intact, moves all extremities - Allied Health Allied health notes reviewed: nursing, case management Results - Labs CBC & Chem 7: 05/25/21 02:50 05/25/21 02:50 Labs: Laboratory Last Values WBC 5.8 K/mm3 (4.5-11.0) 05/24/21 12:22 RBC 6.33 M/mm3 (3.65-5.03) H 05/24/21 12:22 Hgb 19.9 gm/dl (11.8-15.2) H 05/24/21 12:22 Hct 58.5 % (35.5-45.6) H 05/24/21 12: MCV 93 fl (84-94) 05/24/21 12: MCH 31 pg (28-32) 05/24/21 12: MCHC 34 % (32-34) 05/24/21 12: RDW 13.3 % (13.2-15.2) 05/24/21 12: Plt Count 211 K/mm3 (140-440) 05/24/21 12: Lymph % (Auto) 13.2 % (13.4-35.0) L 05/24/21 12: [place] % (Auto) 11.7 % (0.0-7.3) H 05/24/21 12: Eos % (Auto) 0.1 % (0.0-4.3) 05/24/21 12: Baso % (Auto) 1.4 % (0.0-1.8) 05/24/21 12: Lymph # (Auto) 0.8 K/mm3 (1.2-5.4) L 05/24/21 12: [place] # (Auto) 0.7 K/mm3 (0.0-0.8) 05/24/21 12: Eos # (Auto) 0.0 K/mm3 (0.0-0.4) 05/24/21 12: Baso # (Auto) 0.1 K/mm3 (0.0-0.1) 05/24/21 12: Seg Neutrophils % 73.6 % (40.0-70.0) H 05/24/21 12: Seg Neutrophils # 4.2 K/mm3 (1.8-7.7) 05/24/21 12: PT 14.6 Sec. (12.2-14.9) 05/24/21 12: INR 1.03 (0.87-1.13) 05/24/21 12: APTT 32.6 Sec. (24.2-36.6) 05/24/21 12: Sodium 122 mmol/L (137-145) L 05/24/21 12: Potassium 4.4 mmol/L (3.6-5.0) 05/24/21 12: Chloride 78.5 mmol/L (98-107) L 05/24/21 12:23 Carbon Dioxide 30 mmol/L (22-30) 05/24/21 12:23 Anion Gap 18 mmol/L 05/24/21 12:23 BUN 34 mg/dL (9-20) H 05/24/21 12:23 Creatinine 1.5 mg/dL (0.8-1.3) H 05/24/21 12:23 Estimated GFR > 60 ml/min 05/24/21 12:23 BUN/Creatinine Ratio 23 % 05/24/21 12:23 Glucose 99 mg/dL (75-100) 05/24/21 12:23 Calcium 10.6 mg/dL (8.4-10.2) H 05/24/21 12:23 Total Bilirubin 3.10 mg/dL (0.1-1.2) H 05/24/21 12:23 AST 161 units/L (5-40) H 05/24/21 12:23 ALT 73 units/L (7-56) H 05/24/21 12:23 Alkaline Phosphatase 129 units/L (35-129) 05/24/21 12:23 NT-Pro-B Natriuret Pep 42.82 pg/mL (0-450) 05/24/21 12:28 Total Protein 8.7 g/dL (6.3-8.2) H 05/24/21 12:23 Albumin 5.2 g/dL (3.9-5) H 05/24/21 12:23 Albumin/Globulin Ratio 1.5 % 05/24/21 12:23 Lipase 24 units/L (13-60) 05/24/21 12:23 Urine Color Yellow (Yellow) 05/24/21 Unknown Urine Turbidity Clear (Clear) 05/24/21 Unknown Urine pH 6.0 (5.0-7.0) 05/24/21 Unknown Ur Specific [place] 1.021 (1.003-1.030) 05/24/21 Unknown Urine Protein 30 mg/dl mg/dL (Negative) 05/24/21 Unknown Urine Glucose (UA) Neg mg/dL (Negative) 05/24/21 Unknown Urine Ketones 20 mg/dL (Negative) 05/24/21 Unknown Urine Blood Mod (Negative) 05/24/21 Unknown Urine Nitrite Neg (Negative) 05/24/21 Unknown Urine Bilirubin Neg (Negative) 05/24/21 Unknown Urine Urobilinogen < 2.0 mg/dL (<2.0) 05/24/21 Unknown Ur Leukocyte Esterase Neg (Negative) 05/24/21 Unknown Urine WBC (Auto) 1.0 /HPF (0.0-6.0) 05/24/21 Unknown Urine RBC (Auto) 2.0 /HPF (0.0-6.0) 05/24/21 Unknown U Epithel Cells (Auto) < 1.0 /HPF (0-13.0) 05/24/21 Unknown Urine Mucus Few /HPF 05/24/21 Unknown Hepatitis A IgM Ab Non-reactive (NonReactive) 05/24/21 13:09 Hep Bs Antigen Nonreactive (Negative) 05/24/21 13:09 Hep B Core IgM Ab Non-reactive (NonReactive) 05/24/21 13:09 Hepatitis C Antibody Non-reactive (NonReactive) 05/24/21 13:09 Monoscreen Negative (Negative) 05/24/21 13:09 Short CBC 05/24/21 05/25/21 Range/Units 12:22 02:50 WBC 5.8 6.2 (4.5-11.0) K/mm3 Hgb 19.9 H 18.0 H (11.8-15.2) gm/dl Hct 58.5 H 54.1 H (35.5-45.6) % Plt Count 211 188 (140-440) K/mm3 BMP 05/24/21 05/25/21 12:23 02:50 Sodium 122 L 127 L Potassium 4.4 4.3 Chloride 78.5 L 89.2 L Carbon Dioxide 30 27 BUN 34 H 25 H Creatinine 1.5 H 1.3 Glucose 99 95 Calcium 10.6 H 9.1 Liver Function 05/24/21 05/25/21 Range/Units 12:23 02:50 Total Bilirubin 3.10 H 2.50 H (0.1-1.2) mg/dL AST 161 H 108 H (5-40) units/L ALT 73 H 50 (7-56) units/L Alkaline Phosphatase 129 98 (35-129) units/L Albumin 5.2 H 4.2 (3.9-5) g/dL Urine 05/24/21 Range/Units Unknown Urine Color Yellow (Yellow) Urine pH 6.0 (5.0-7.0) Ur Specific [place] 1.021 (1.003-1.030) Urine Protein 30 mg/dl (Negative) mg/dL Urine Glucose (UA) Neg (Negative) mg/dL Assessment and Plan Advance Directives: Yes - Patient Problems (1) Acute gastritis Current Visit: Yes Status: Acute Qualifiers: Gastritis type: unspecified gastritis Plan to address problem: IV Protonix initiated GI consult requested (2) Intractable nausea and vomiting Current Visit: Yes Status: Acute Plan to address problem: Probable acute gastritis No NSAIDs GI consult requested IV Zofran Reglan, IV Protonix for now IV fluids for now (3) Polycythemia due to fall in plasma volume Current Visit: Yes Status: Acute Plan to address problem: IV fluids for now and monitor hemoglobin and hematocrit. Heme-onc consult if necessary (4) XENIA (acute kidney injury) Current Visit: Yes Status: Acute Plan to address problem: IV fluids for now Vasomotor nephropathy (5) Dehydration Current Visit: Yes Status: Acute Plan to address problem: IV fluids for now (6) Hyponatremia Current Visit: Yes Status: Acute Plan to address problem: Probably secondary to persistent vomiting IV normal saline for now Osmolarity and osmolality ordered (7) Transaminitis Current Visit: Yes Status: Acute Plan to address problem: Etiology unclear Acute hepatitis profile requested (8) DVT prophylaxis Current Visit: Yes Status: Acute Plan to address problem: Heparin and GI prophylaxis (9) Advance care planning Current Visit: Yes Status: Acute Plan to address problem: Disease education conducted, care plan discussed, diagnosis discussed, prognosis discussed. Patient is full code. Patient acknowledges understanding and agreement with care plan. 30 minutes.
[2021-05-25] MEDS ORDERED: PROMETHAZINE 25 MG TAB PO PRN (02:04)
[2021-05-25] MEDS ORDERED: MORPHINE 2 MG/1 ML INJ IV PRN (02:05)
[2021-05-25] MEDS ORDERED: ACETAMINOPHEN 325 MG TAB PO PRN (02:05)
[2021-05-25] MEDS ORDERED: HYDROmorphone 1 MG/1 ML INJ IV PRN (02:05)
[2021-05-25] MEDS ORDERED: ONDANSETRON 4 MG/2 ML INJ IV PRN (02:05)
[2021-05-25] MEDS ORDERED: FAMOTIDINE 20 MG/2 ML INJ IV SCH (03:00)
[2021-05-25 03:12] LABS: Basophils # (Auto) 0.1 K/mm3 (0.0-0.1); Basophils % (Auto) 1.6 % (0.0-1.8); Eosinophils # (Auto) 0.1 K/mm3 (0.0-0.4); Eosinophils % (Auto) 1.2 % (0.0-4.3); Hematocrit 54.1 % (35.5-45.6); Lymphocytes # (Auto) 1.2 K/mm3 (1.2-5.4); Lymphocytes % (Auto) 19.1 % (13.4-35.0); Mean Corpuscular HGB Conc 33 % (32-34); Mean Corpuscular Volume 94 fl (84-94); Monocytes # (Auto) 0.9 K/mm3 (0.0-0.8); Monocytes % (Auto) 14.8 % (0.0-7.3); Platelet Count 188 K/mm3 (140-440); Red Blood Count 5.78 M/mm3 (3.65-5.03); Red Cell Distribution Width 13.4 % (13.2-15.2)
[2021-05-25 03:24] LABS: Alanine Aminotransferase 50 units/L (7-56); Albumin 4.2 g/dL (3.9-5); BUN/Creatinine Ratio 19; Blood Urea Nitrogen 25 mg/dL (9-20); Calcium 9.1 mg/dL (8.4-10.2); Hemolysis Index 28
[2021-05-25] MEDS: HEPARIN 5,000 UNIT/1 ML VIAL SUB-Q SCH ×3 (05:36→21:56)
[2021-05-25] MEDS: risperiDONE 1 MG TAB PO SCH ×3 (05:36→21:56)
[2021-05-25] MEDS: DIVALPROEX DR 250 MG TAB PO SCH ×3 (05:36→21:57)
[2021-05-25] MEDS: PANTOPRAZOLE 40 MG INJ IV SCH ×2 (05:51→16:58)
[2021-05-25] MEDS ORDERED: MORPHINE 2 MG/1 ML INJ ONE (10:43)
[2021-05-25] MEDS ORDERED: SODIUM CHLORIDE 0.9% 1000 ML 1,000 ML ONE (10:48)
[2021-05-25] MEDS: SERTRALINE 50 MG TAB PO SCH (10:53)
--- NOTE | 2021-05-25 16:39 | Event Note ---
Date: 05/25/21 Full consult dictated - pt presents w/ reports nausea, vomiting, ct negative - noted slight increase lft's now improving - check uds - feeling better, start po if stable ultrasound - no plans to scope at this time
--- NOTE | 2021-05-25 17:58 | Consultation ---
History of Present Illness - Reason for Consult Consult date: 05/25/21 acute renal failure Requesting physician: GRACE SANTIAGO - History of Present Illness The patient is a 25-year-old male present with a chief complaint of abdominal pain nausea vomiting. Patient states he has been "sick" for the past 10 days with symptoms consisting mostly of nausea vomiting and abdominal pain. Patient complains of periumbilical abdominal pain in addition to abdominal soreness from his frequent nausea vomiting. The patient states he has not eaten in 1 week and occasionally is able to keep down water. Patient denies having history of cough or rhinorrhea. Patient states he is uncertain if he had a fever. Patient denies diarrhea. Patient currently gets his abdominal pain a score of 7/10. Patient came to the ED 2 days ago but left without being seen - Past Medical History Previous Medical History?: Yes Hx GERD: Yes Additional medical history: mental health - Surgical History Past Surgical History?: No - Family History Family history: no significant - Social History Smoking Status: Never Smoker Substance Use Type: None (Denies illicit drug use) ROS: Stated complaint: ABD PAIN/VOMITNG Other details as noted in HPI Constitutional: fever (?) Eyes: denies: eye pain ENT: denies: throat pain Respiratory: denies: cough Cardiovascular: denies: chest pain Endocrine: no symptoms reported Gastrointestinal: abdominal pain, nausea, vomiting. denies: diarrhea Genitourinary: denies: dysuria Musculoskeletal: back pain Neurological: denies: headache Medications and Allergies Allergies Allergy/AdvReac Type Severity Reaction Status Date / Time No Known Allergies Allergy Verified 05/25/21 15:14 Home Medications Medication Instructions Recorded Confirmed Last Taken Type Divalproex Dr [DepaKOTE DR] 250 mg PO BID #60 tablet 02/04/21 05/25/21 Unknown Rx Sertraline [Zoloft] 50 mg PO QDAY #30 tablet 02/04/21 05/25/21 Unknown Rx risperiDONE [RisperDAL] 1 mg PO BID #60 tablet 02/04/21 05/25/21 Unknown Rx Active Meds: Active Medications Acetaminophen (Acetaminophen 325 Mg Tab) 650 mg PO Q4H PRN PRN Reason: Pain MILD(1-3)/Fever >100.5/KELLY Divalproex Sodium (Divalproex Dr 250 Mg Tab) 250 mg PO BID KATERIN Last Admin: 05/25/21 10:52 Dose: Not Given Heparin Sodium (Porcine) (Heparin 5,000 Unit/1 Ml Vial) 5,000 unit SUB-Q Q12HR [facility] Last Admin: 05/25/21 10:54 Dose: Not Given Dextrose/Sodium Chloride (D5ns) 1,000 mls @ 125 mls/hr IV DIRECT [facility] Ondansetron HCl (Ondansetron 4 Mg/2 Ml Inj) 4 mg IV Q8H PRN PRN Reason: Nausea And Vomiting Pantoprazole Sodium (Pantoprazole 40 Mg Inj) 40 mg IV Q12H [facility] Last Admin: 05/25/21 05:51 Dose: 40 mg Promethazine HCl (Promethazine 25 Mg Tab) 25 mg PO Q6HR PRN PRN Reason: Nausea Risperidone (Risperidone 1 Mg Tab) 1 mg PO BID [facility] Last Admin: 05/25/21 10:53 Dose: Not Given Sertraline HCl (Sertraline 50 Mg Tab) 50 mg PO QDAY [facility] Last Admin: 05/25/21 10:53 Dose: Not Given Sodium Chloride (Sodium Chloride 0.9% 10 Ml Flush Syringe) 10 ml IV BID [facility] Last Admin: 05/25/21 10:53 Dose: 10 ml Sodium Chloride (Sodium Chloride 0.9% 10 Ml Flush Syringe) 10 ml IV PRN PRN PRN Reason: LINE FLUSH Exam - Vital Signs Vital signs: Vital Signs Pulse Resp BP Pulse Ox 74 16 114/79 99 05/24/21 11:45 05/24/21 11:45 05/24/21 11:45 05/24/21 11:45 - Physical Exam Narrative exam: GENERAL: The patient is well-developed well-nourished male lying on stretcher in position appearing to be in mild. [] HEENT: Normocephalic. Atraumatic. Extraocular motions are intact. Patient has moist mucous membranes. NECK: Supple. Trachea midline CHEST/LUNGS: Clear to auscultation. There is no respiratory distress noted. HEART/CARDIOVASCULAR: Regular. There is no tachycardia. There is no gallop rub or murmur. ABDOMEN: Abdomen is soft, with greatest tenderness in the periumbilical and right upper quadrant. Patient has normal bowel sounds. There is no abdominal distention. SKIN: There is no rash. There is no edema. There is no diaphoresis. NEURO: The patient is awake, alert, and oriented. The patient is cooperative. The patient has no focal neurologic deficits. The patient has normal speech. GCS 15 MUSCULOSKELETAL: There is CVA tenderness bilaterally. There is no evidence of acute injury. Results - Lab Results 05/25/21 02:50 05/25/21 02:50 Most recent lab results Calcium 9.1 mg/dL (8.4-10.2) 05/25/21 02:50 Assessment and Plan Impression: * ilda * hyponatremia * volume depletion * nausea and emesis Plan: * ivfs * daily lytes and strict i/os * avoid nephrotoxins * adv diet as tolerate
--- NOTE | 2021-05-25 19:24 | Progress Note ---
Assessment and Plan Assessment and plan: 25-year-old male with history of mental health disease on Depakote Zoloft and Risperdal comes in for vomiting for the past 10 days. Nausea and vomiting with eating and patient presents for he has diffuse abdominal pain. Vomiting about 6-8 times a day. Patient states he has not eaten for 1 week and unable to keep anything down. Patient is on Motrin. Denies diarrhea. No fever or chills. No exposure to COVID. Vaccination status not known. (1) possible gastritis, admits to using Motrin but denies excess alcohol use. Current Visit: Yes Status: Acute Qualifiers: Gastritis type: unspecified gastritis Plan to address problem: IV Protonix initiated GI consult requested (2) Intractable nausea and vomiting Current Visit: Yes Status: Acute Plan to address problem: Urinary screen positive for marijuana, other possible etiologies No NSAIDs GI consult requested IV Zofran Reglan, IV Protonix for now IV fluids for now No nausea since since placed n.p.o. Resume diet as tolerated (4) XENIA (acute kidney injury) Current Visit: Yes Status: Acute Plan to address problem: IV fluids for now Vasomotor nephropathy (5) Dehydration Current Visit: Yes Status: Acute Plan to address problem: IV fluids for now (6) Hyponatremia Current Visit: Yes Status: Acute Plan to address problem: Probably secondary to persistent vomiting IV normal saline, improving Osmolarity and osmolality ordered Nephrology consulted Monitor LFTs daily (7) Transaminitis with elevated bilirubin Current Visit: Yes Status: Acute Plan to address problem: CT abdomen unremarkable kidney and liver. Hepatitis serology normal. Etiology unclear Ordered liver/gallbladder ultrasound Consulted GI. (8) history of mental health disorder Stable, continue home meds DVT prophylaxis Current Visit: Yes Status: Acute Plan to address problem: Heparin and GI prophylaxis Discussed with patient and the nursing staff. History Interval history: Patient is awake and alert without acute distress. No nausea or vomiting today, was n.p.o. for the abdominal ultrasound. Ordered diet as tolerated. No significant abdominal pains. No diarrhea. Denies past medical problems. Patient denies illicit drug use but urine drug screen positive for cannabis. Denies history of liver/gallbladder disease. Hospitalist Physical - Constitutional Vitals: Temp Pulse Resp BP Pulse Ox 98.1 F 63 18 115/74 99 05/25/21 16:41 05/25/21 16:41 05/25/21 16:41 05/25/21 16:41 05/25/21 17:11 General appearance: Present: no acute distress, well-nourished - EENT Eyes: Present: PERRL ENT: clear oral mucosa - Neck Neck: Present: supple - Respiratory Respiratory effort: normal Respiratory: bilateral: CTA - Cardiovascular Rhythm: regular - Extremities Extremities: No edema - Abdominal General gastrointestinal: soft, non-tender, non-distended, normal bowel sounds - Integumentary Integumentary: Absent: rash - Psychiatric Psychiatric: appropriate mood/affect - Neurologic Neurologic: no focal deficits, moves all extremities Results - Labs CBC & Chem 7: 05/26/21 04:41 05/26/21 04:41 Labs: Laboratory Last Values WBC 6.2 K/mm3 (4.5-11.0) 05/25/21 02:50 RBC 5.78 M/mm3 (3.65-5.03) H 05/25/21 02:50 Hgb 18.0 gm/dl (11.8-15.2) H 05/25/21 02:50 Hct 54.1 % (35.5-45.6) H 05/25/21 02:50 MCV 94 fl (84-94) 05/25/21 02:50 MCH 31 pg (28-32) 05/25/21 02:50 MCHC 33 % (32-34) 05/25/21 02:50 RDW 13.4 % (13.2-15.2) 05/25/21 02:50 Plt Count 188 K/mm3 (140-440) 05/25/21 02:50 Lymph % (Auto) 19.1 % (13.4-35.0) 05/25/21 02:50 [place] % (Auto) 14.8 % (0.0-7.3) H 05/25/21 02:50 Eos % (Auto) 1.2 % (0.0-4.3) 05/25/21 02:50 Baso % (Auto) 1.6 % (0.0-1.8) 05/25/21 02:50 Lymph # (Auto) 1.2 K/mm3 (1.2-5.4) 05/25/21 02:50 [place] # (Auto) 0.9 K/mm3 (0.0-0.8) H 05/25/21 02:50 Eos # (Auto) 0.1 K/mm3 (0.0-0.4) 05/25/21 02:50 Baso # (Auto) 0.1 K/mm3 (0.0-0.1) 05/25/21 02:50 Seg Neutrophils % 63.3 % (40.0-70.0) 05/25/21 02:50 Seg Neutrophils # 3.9 K/mm3 (1.8-7.7) 05/25/21 02:50 PT 14.6 Sec. (12.2-14.9) 05/24/21 12:27 INR 1.03 (0.87-1.13) 05/24/21 12:27 APTT 32.6 Sec. (24.2-36.6) 05/24/21 12:27 Sodium 127 mmol/L (137-145) L 05/25/21 02:50 Potassium 4.3 mmol/L (3.6-5.0) 05/25/21 02:50 Chloride 89.2 mmol/L (98-107) L 05/25/21 02:50 Carbon Dioxide 27 mmol/L (22-30) 05/25/21 02:50 Anion Gap 15 mmol/L 05/25/21 02:50 BUN 25 mg/dL (9-20) H 05/25/21 02:50 Creatinine 1.3 mg/dL (0.8-1.3) 05/25/21 02:50 Estimated GFR > 60 ml/min 05/25/21 02:50 BUN/Creatinine Ratio 19 % 05/25/21 02:50 Glucose 95 mg/dL (75-100) 05/25/21 02:50 Calcium 9.1 mg/dL (8.4-10.2) 05/25/21 02:50 Total Bilirubin 2.50 mg/dL (0.1-1.2) H 05/25/21 02:50 AST 108 units/L (5-40) H 05/25/21 02:50 ALT 50 units/L (7-56) 05/25/21 02:50 Alkaline Phosphatase 98 units/L (35-129) 05/25/21 02:50 NT-Pro-B Natriuret Pep 42.82 pg/mL (0-450) 05/24/21 12:28 Total Protein 6.7 g/dL (6.3-8.2) D 05/25/21 02:50 Albumin 4.2 g/dL (3.9-5) 05/25/21 02:50 Albumin/Globulin Ratio 1.7 % 05/25/21 02:50 Lipase 24 units/L (13-60) 05/24/21 12:23 Urine Color Yellow (Yellow) 05/24/21 Unknown Urine Turbidity Clear (Clear) 05/24/21 Unknown Urine pH 6.0 (5.0-7.0) 05/24/21 Unknown Ur Specific [place] 1.021 (1.003-1.030) 05/24/21 Unknown Urine Protein 30 mg/dl mg/dL (Negative) 05/24/21 Unknown Urine Glucose (UA) Neg mg/dL (Negative) 05/24/21 Unknown Urine Ketones 20 mg/dL (Negative) 05/24/21 Unknown Urine Blood Mod (Negative) 05/24/21 Unknown Urine Nitrite Neg (Negative) 05/24/21 Unknown Urine Bilirubin Neg (Negative) 05/24/21 Unknown Urine Urobilinogen < 2.0 mg/dL (<2.0) 05/24/21 Unknown Ur Leukocyte Esterase Neg (Negative) 05/24/21 Unknown Urine WBC (Auto) 1.0 /HPF (0.0-6.0) 05/24/21 Unknown Urine RBC (Auto) 2.0 /HPF (0.0-6.0) 05/24/21 Unknown U Epithel Cells (Auto) < 1.0 /HPF (0-13.0) 05/24/21 Unknown Urine Mucus Few /HPF 05/24/21 Unknown Hepatitis A IgM Ab Non-reactive (NonReactive) 05/24/21 13:09 Hep Bs Antigen Nonreactive (Negative) 05/24/21 13:09 Hep B Core IgM Ab Non-reactive (NonReactive) 05/24/21 13:09 Hepatitis C Antibody Non-reactive (NonReactive) 05/24/21 13:09 Monoscreen Negative (Negative) 05/24/21 13:09 [place]/IV: Voiding Method Toilet Active Medications - Current Medications Current Medications: Generic Name Dose Route Start Last Admin Trade Name Freq PRN Reason Stop Dose Admin Acetaminophen 650 mg 05/25/21 02:05 Acetaminophen 325 Mg Tab PO Q4H PRN Pain MILD(1-3)/Fever >100.5/KELLY Divalproex Sodium 250 mg 05/25/21 03:00 05/25/21 10:[address] 250 Mg Tab PO Not Given BID KATERIN Heparin Sodium (Porcine) 5,000 unit 05/25/21 02:45 05/25/21 10:54 Heparin 5,000 Unit/1 Ml Vial SUB-Q Not Given Q12HR KATERIN Dextrose/Sodium Chloride 1,000 mls @ 125 mls/hr 05/25/21 03:00 D5ns IV DIRECT KATERIN Ondansetron HCl 4 mg 05/25/21 02:05 Ondansetron 4 Mg/2 Ml Inj IV Q8H PRN Nausea And Vomiting Pantoprazole Sodium 40 mg 05/25/21 03:00 05/25/21 16:58 Pantoprazole 40 Mg Inj IV 40 mg Q12H KATERIN Administration Promethazine HCl 25 mg 05/25/21 02:04 Promethazine 25 Mg Tab PO Q6HR PRN Nausea Risperidone 1 mg 05/25/21 03:00 05/25/21 10:53 Risperidone 1 Mg Tab PO Not Given BID KATERIN Sertraline HCl 50 mg 05/25/21 10:00 05/25/21 10:53 Sertraline 50 Mg Tab PO Not Given QDAY KATERIN Sodium Chloride 10 ml 05/25/21 03:00 05/25/21 10:53 Sodium Chloride 0.9% 10 Ml Flush Syringe IV 10 ml BID KATERIN Administration Sodium Chloride 10 ml 05/25/21 02:05 Sodium Chloride 0.9% 10 Ml Flush Syringe IV PRN PRN LINE FLUSH
[2021-05-25 20:24] LABS: Amphetamine Screen,Urine Negative; Benzodiazepines Screen,Urine Negative; Cocaine Screen,Urine Negative; Methadone Screen,Urine Negative; Opiate Screen,Urine Negative
[2021-05-25 20:50] LABS: Cannabinoid Screen,Urine Positive
--- NOTE | 2021-05-26 01:40 | Consultation ---
DATE OF CONSULTATION: 05/25/2021 REFERRING PHYSICIAN: Moon Greenfield MD INDICATION: Nausea, vomiting. HISTORY OF PRESENT ILLNESS: The patient is a 25-year-old black male with a history of mental disease for which he is on Depakote, Zoloft and Risperdal, comes in for nausea, vomiting. The patient reports he has had this intermittent nausea, vomiting for years, but this was restarted over the last week. He reports no obvious food association. He reports no obvious activity relationship. Denies weight loss or anemia. Denies any lower GI symptoms including rectal bleeding. The patient subsequently was admitted and GI consulted. The patient denies any recent cannabis use. PAST MEDICAL HISTORY: Mental health disease. MEDICATIONS: Reviewed and updated in chart. ALLERGIES: No known drug allergies. SOCIAL HISTORY: Positive smoker. Social alcohol. FAMILY HISTORY: Negative for colon cancer, IBD, or liver disease. REVIEW OF SYSTEMS: GENERAL: Reports some weakness. HEENT: Denies visual complaints or tinnitus. PULMONARY: Denies shortness of breath, cough, chest pain. GASTROINTESTINAL: Reports nausea, vomiting. All points of 13-point review of system otherwise negative. PHYSICAL EXAMINATION: VITAL SIGNS: Temperature of 97.5, pulse 64, respirations 18, blood pressure 127/85. GENERAL: Fairly-nourished, no acute distress. HEENT: Pupils round and reactive. PULMONARY: Clear to auscultation bilaterally. CARDIOVASCULAR: Regular rate and rhythm. Normal S1, S2. ABDOMEN: Positive bowel sounds, soft. SKIN: No obvious rashes. LABORATORY DATA: Pertinent for white count 6.2, hemoglobin and hematocrit of 18 and 34, platelet count of 188. Chem-7: Sodium of 127, potassium 4.3, chloride 90, CO2 27, BUN and creatinine of 25 and 1.3. LFTs within normal limits. AST and ALT of 108 and 50 with an alkaline phosphatase of 98. ASSESSMENT: A 35-year-old black male with a history of mental disorders and on medications, presented with recurrent nausea and vomiting, unclear etiology. The patient himself reports he feels much better and would like to eat. CT scan showed no pathology. The patient denies cannabis. No UDS was done. Management as noted below. PLAN: 1. Review CT scan and await abdominal ultrasound as ordered. 2. The patient had slightly increased liver function tests, but I feel secondary to initial presentation and already improving. Await acute hepatitis panel. 3. PPI daily. 4. Antiemetics per primary team. 5. No plans for EGD at this time. 6. If negative ultrasound and tolerating p.o., okay to discharge from GI standpoint. 7. We will follow. TID: [id number] RECEIPT: [id number] CAB/EKT
[2021-05-26] MEDS: PANTOPRAZOLE 40 MG INJ IV SCH (02:33)
[2021-05-26] MEDS: D5W/0.9% NACL 1,000 ML IV SCH (02:33)
[2021-05-26 06:09] LABS: Basophils % (Auto) 0.8 % (0.0-1.8); Eosinophils # (Auto) 0.1 K/mm3 (0.0-0.4); Hematocrit 46.5 % (35.5-45.6); Hemoglobin 15.3 gm/dl (11.8-15.2); Lymphocytes # (Auto) 1.7 K/mm3 (1.2-5.4); Lymphocytes % (Auto) 32.6 % (13.4-35.0); Mean Corpuscular HGB Conc 33 % (32-34); Mean Corpuscular Volume 94 fl (84-94); Monocytes # (Auto) 0.7 K/mm3 (0.0-0.8); Monocytes % (Auto) 13.6 % (0.0-7.3); Platelet Count 204 K/mm3 (140-440); Red Blood Count 4.93 M/mm3 (3.65-5.03); Red Cell Distribution Width 13.4 % (13.2-15.2)
[2021-05-26 06:24] LABS: BUN/Creatinine Ratio 16; Blood Urea Nitrogen 19 mg/dL (9-20); Calcium 8.4 mg/dL (8.4-10.2); Hemolysis Index 13
--- NOTE | 2021-05-26 09:20 | Progress Note ---
Assessment and Plan Impression: * ilda * hyponatremia * volume depletion * nausea and emesis Plan: * ivfs * Na is better today * daily lytes and strict i/os * avoid nephrotoxins * adv diet as tolerate * will follow labs peripherally Subjective Date of service: 05/26/21 Principal diagnosis: hyponatremia Interval history: events noted labs and chart reviewed Objective - Exam Narrative Exam: GENERAL: The patient is well-developed well-nourished male lying on stretcher in position appearing to be in mild. [] HEENT: Normocephalic. Atraumatic. Extraocular motions are intact. Patient has moist mucous membranes. NECK: Supple. Trachea midline CHEST/LUNGS: Clear to auscultation. There is no respiratory distress noted. HEART/CARDIOVASCULAR: Regular. There is no tachycardia. There is no gallop rub or murmur. ABDOMEN: Abdomen is soft, with greatest tenderness in the periumbilical and right upper quadrant. Patient has normal bowel sounds. There is no abdominal distention. SKIN: There is no rash. There is no edema. There is no diaphoresis. NEURO: The patient is awake, alert, and oriented. The patient is cooperative. The patient has no focal neurologic deficits. The patient has normal speech. GCS 15 MUSCULOSKELETAL: There is CVA tenderness bilaterally. There is no evidence of acute injury. - Vital Signs Vital signs: Vital Signs - 12hr 05/25/21 05/25/21 05/26/21 22:00 23:09 03:47 Temperature 98.0 F 97.6 F Pulse Rate 72 64 56 L Respiratory 16 16 Rate Blood Pressure 106/67 110/59 O2 Sat by Pulse 98 100 Oximetry 05/26/21 05/26/21 05:00 08:20 Temperature 98.3 F Pulse Rate 57 L Respiratory 20 Rate Blood Pressure 114/81 O2 Sat by Pulse 99 98 Oximetry - Lab 05/26/21 04:41 05/26/21 04:41 Most recent lab results Calcium 8.4 mg/dL (8.4-10.2) 05/26/21 04:41 Medications & Allergies - Medications Allergies/Adverse Reactions: Allergies No Known Allergies Allergy (Verified 05/25/21 15:14) Home Medications: Home Medications Medication Instructions Recorded Confirmed Last Taken Type Divalproex [Fernando JUAREZ] 250 mg PO BID #60 tablet 02/04/21 05/25/21 Unknown Rx Sertraline [Zoloft] 50 mg PO QDAY #30 tablet 02/04/21 05/25/21 Unknown Rx risperiDONE [RisperDAL] 1 mg PO BID #60 tablet 02/04/21 05/25/21 Unknown Rx Active Medications: Generic Name Dose Route Start Last Admin Trade Name Freq PRN Reason Stop Dose Admin Acetaminophen 650 mg 05/25/21 02:05 Acetaminophen 325 Mg Tab PO Q4H PRN Pain MILD(1-3)/Fever >100.5/KELLY Divalproex Sodium 250 mg 05/25/21 03:00 05/25/21 21:[address] 250 Mg Tab PO Not Given BID KATERIN Heparin Sodium (Porcine) 5,000 unit 05/25/21 02:45 05/25/21 21:56 Heparin 5,000 Unit/1 Ml Vial SUB-Q 5,000 unit Q12HR KATERIN Administration Dextrose/Sodium Chloride 1,000 mls @ 125 mls/hr 05/25/21 03:00 05/26/21 02:33 D5ns IV 125 mls/hr DIRECT KATERIN Administration Ondansetron HCl 4 mg 05/25/21 02:05 05/25/21 21:55 Ondansetron 4 Mg/2 Ml Inj IV 4 mg Q8H PRN Administration Nausea And Vomiting Pantoprazole Sodium 40 mg 05/25/21 03:00 05/26/21 02:33 Pantoprazole 40 Mg Inj IV 40 mg Q12H KATERIN Administration Promethazine HCl 25 mg 05/25/21 02:04 Promethazine 25 Mg Tab PO Q6HR PRN Nausea Risperidone 1 mg 05/25/21 03:00 05/25/21 21:56 Risperidone 1 Mg Tab PO 1 mg BID KATERIN Administration Sertraline HCl 50 mg 05/25/21 10:00 05/25/21 10:53 Sertraline 50 Mg Tab PO Not Given QDAY KATERIN Sodium Chloride 10 ml 05/25/21 03:00 05/25/21 21:57 Sodium Chloride 0.9% 10 Ml Flush Syringe IV 10 ml BID KATERIN Administration Sodium Chloride 10 ml 05/25/21 02:05 Sodium Chloride 0.9% 10 Ml Flush Syringe IV PRN PRN LINE FLUSH
[2021-05-26 09:29] LABS: Alanine Aminotransferase 45 units/L (7-56); Albumin 3.4 g/dL (3.9-5)
[2021-05-26 09:54] LABS: Bilirubin,Direct < 0.2 mg/dL (0-0.2)
--- NOTE | 2021-05-26 10:27 | Gastroenterology Progress Note ---
Assessment and Plan - Patient Problems (1) Intractable nausea and vomiting Current Visit: Yes Status: Acute Plan to address problem: - Given the abnl LFTs, I suspect EtOH in addition to MJ (or other toxin). - Continue IV hydration, and MVI therapy. - Liver US unremarkable (prelim), Hepatitis negative, and LFTs improving. - Continue to advance diet as tolerated. (2) Transaminitis Current Visit: Yes Status: Acute Subjective Date of service: 05/26/21 Principal diagnosis: Abnl LFT/Vomiting Interval history: The patient has rec'd his US, and is back in his room. He is requesting food, and has had no witnessed vomiting this AM. Still c/o abdominal pain. No fevers. Objective - Constitutional Vitals: Temp Pulse Resp BP Pulse Ox 98.3 F 57 L 20 114/81 98 05/26/21 08:20 05/26/21 08:20 05/26/21 08:20 05/26/21 08:20 05/26/21 08:20 General appearance: no acute distress - Respiratory Respiratory effort: normal Respiratory: bilateral: CTA - Cardiovascular Rhythm: regular Heart Sounds: Present: S1 & S2 - Gastrointestinal General gastrointestinal: Present: soft, non-tender, non-distended - Labs CBC & Chem 7: 05/26/21 04:41 05/26/21 04:41 Labs: Laboratory Results - last 24 hr 05/25/21 05/26/21 05/26/21 19:00 04:41 04:41 WBC 5.1 RBC 4.93 Hgb 15.3 H Hct 46.5 H D MCV 94 MCH 31 MCHC 33 RDW 13.4 Plt Count 204 Lymph % (Auto) 32.6 [place] % (Auto) 13.6 H Eos % (Auto) 2.0 Baso % (Auto) 0.8 Lymph # (Auto) 1.7 [place] # (Auto) 0.7 Eos # (Auto) 0.1 Baso # (Auto) 0.0 Seg Neutrophils % 51.0 Seg Neutrophils # 2.6 Sodium 134 L D Potassium 3.7 Chloride 97.4 L Carbon Dioxide 27 Anion Gap 13 BUN 19 Creatinine 1.2 Estimated GFR > 60 BUN/Creatinine Ratio 16 Glucose 90 Calcium 8.4 Total Bilirubin Direct Bilirubin Indirect Bilirubin AST ALT Alkaline Phosphatase Total Protein Albumin Albumin/Globulin Ratio Urine Opiates Screen Negative Urine Methadone Screen Negative Ur Barbiturates Screen Negative Ur Phencyclidine Scrn Negative Ur Amphetamines Screen Negative U Benzodiazepines Scrn Negative Urine Cocaine Screen Negative U Marijuana (THC) Screen Positive Drugs of Abuse Note Disclamer 05/26/21 04:41 WBC RBC Hgb Hct MCV MCH MCHC RDW Plt Count Lymph % (Auto) [place] % (Auto) Eos % (Auto) Baso % (Auto) Lymph # (Auto) [place] # (Auto) Eos # (Auto) Baso # (Auto) Seg Neutrophils % Seg Neutrophils # Sodium Potassium Chloride Carbon Dioxide Anion Gap BUN Creatinine Estimated GFR BUN/Creatinine Ratio Glucose Calcium Total Bilirubin 1.00 Direct Bilirubin < 0.2 Indirect Bilirubin 0.8 AST 78 H ALT 45 Alkaline Phosphatase 86 Total Protein 5.6 L Albumin 3.4 L Albumin/Globulin Ratio 1.5 Urine Opiates Screen Urine Methadone Screen Ur Barbiturates Screen Ur Phencyclidine Scrn Ur Amphetamines Screen U Benzodiazepines Scrn Urine Cocaine Screen U Marijuana (THC) Screen Drugs of Abuse Note
[2021-05-26] MEDS: DIVALPROEX DR 250 MG TAB PO SCH ×3 (10:48→21:56)
[2021-05-26] MEDS: risperiDONE 1 MG TAB PO SCH ×2 (10:48→21:50)
[2021-05-26] MEDS: SERTRALINE 50 MG TAB PO SCH (10:48)
[2021-05-26] MEDS: HEPARIN 5,000 UNIT/1 ML VIAL SUB-Q SCH ×2 (10:51→21:50)
--- NOTE | 2021-05-26 11:12 | Ultrasound Report ---
LIMITED RUQ ABDOMINAL ULTRASOUND INDICATION / CLINICAL INFORMATION: Intractable vomiting with elevated BR. COMPARISON: CT from 05/24/2021 FINDINGS: PANCREAS: Visualized portions of the pancreas are within normal limits. ABDOMINAL AORTA: No significant abnormality. IVC: No significant abnormality. LIVER: The liver measures 16.6 cm in length. The liver demonstrates a normal echogenicity and morpho logy. PORTAL VEIN: Normal hepatopedal blood flow in the main portal vein. GALLBLADDER: The gallbladder is unremarkable. There is no cholelithiasis, gallbladder wall thickening , or pericholecystic fluid. BILE DUCTS: No significant abnormality. Common bile duct measures 2 mm. RIGHT KIDNEY: Diffuse increased cortical echogenicity of the right kidney suggestive of medical renal disease. FREE FLUID: None. ADDITIONAL FINDINGS: None. IMPRESSION: 1. Increased cortical echogenicity of the right kidney, suggestive of medical renal disease. 2. Otherwise, no significant abnormality. Signer Name: Ravinder Luis MD Signed: 05/26/2021 11:08 AM Workstation Name: [id number]
--- NOTE | 2021-05-26 11:59 | Progress Note ---
Assessment and Plan Assessment and plan: 25-year-old male with history of mental health disease on Depakote Zoloft and Risperdal comes in for vomiting for the past 10 days. Nausea and vomiting with eating and patient presents for he has diffuse abdominal pain. Vomiting about 6-8 times a day. Patient states he has not eaten for 1 week and unable to keep anything down. Patient is on Motrin. Denies diarrhea. No fever or chills. No exposure to COVID. Vaccination status not known. -- possible gastritis, admits to using Motrin but denies excess alcohol use. Current Visit: Yes Status: Acute IV Protonix initiated GI evaluation noted and appreciated Recommended regular diet --Intractable nausea and vomiting Current Visit: Yes Status: Acute Urinary screen positive for marijuana, other possible etiologies No NSAIDs. GI consult requested IV Zofran Reglan, IV Protonix for now IV fluids for now No nausea since since placed n.p.o. Resume diet as tolerated Tests CT abdomen and pelvis with contrast; no acute abnormality noted Abdominal ultrasound increased cortical echogenicity of the right kidney s uggesting medical renal disease No significant abnormality Chest x-ray; no acute findings, right aortic arch is suspected --XENIA (acute kidney injury) Current Visit: Yes Status: Acute IV fluids for now Vasomotor nephropathy --Dehydration Current Visit: Yes Status: Acute IV fluids for now --Hyponatremia Current Visit: Yes Status: Acute Probably secondary to persistent vomiting IV normal saline, improving Osmolarity and osmolality ordered Nephrology consulted Monitor LFTs daily --Transaminitis with elevated bilirubin Current Visit: Yes Status: Acute CT abdomen unremarkable kidney and liver. Hepatitis serology normal. Etiology unclear Ordered liver/gallbladder ultrasound Consulted GI. --history of mental health disorder Stable, continue home meds --DVT prophylaxis Current Visit: Yes Status: Acute Plan to address problem: Heparin and GI prophylaxis Discussed with patient and the nursing staff. Advance diet as tolerated Ambulatory as tolerated Possible discharge home tomorrow if stable History Interval history: I have seen and examined the patient at the bedside Patient's chart and medications reviewed Patient complains of some nausea and vomiting Tolerating a little bit of food Electrolyte abnormalities In mild distress Hospitalist Physical - Constitutional Vitals: Temp Pulse Resp BP Pulse Ox 98.3 F 57 L 20 114/81 98 05/26/21 08:20 05/26/21 08:20 05/26/21 08:20 05/26/21 08:20 05/26/21 08:20 General appearance: Present: no acute distress, well-nourished - EENT Eyes: Present: PERRL, EOM intact - Neck Neck: Present: supple, normal ROM - Respiratory Respiratory effort: normal Respiratory: bilateral: diminished, negative: rales, rhonchi, wheezing - Cardiovascular Rhythm: regular Heart Sounds: Present: S1 & S2 - Extremities Extremities: no ischemia, No edema - Abdominal General gastrointestinal: soft, non-tender, non-distended, normal bowel sounds - Integumentary Integumentary: Present: clear, warm - Psychiatric Psychiatric: appropriate mood/affect, cooperative - Neurologic Neurologic: CNII-XII intact, moves all extremities Results - Labs CBC & Chem 7: 05/26/21 04:41 05/26/21 04:41 Labs: Laboratory Last Values WBC 5.1 K/mm3 (4.5-11.0) 05/26/21 04:41 RBC 4.93 M/mm3 (3.65-5.03) 05/26/21 04:41 Hgb 15.3 gm/dl (11.8-15.2) H 05/26/21 04:41 Hct 46.5 % (35.5-45.6) H D 05/26/21 04:41 MCV 94 fl (84-94) 05/26/21 04:41 MCH 31 pg (28-32) 05/26/21 04:41 MCHC 33 % (32-34) 05/26/21 04:41 RDW 13.4 % (13.2-15.2) 05/26/21 04:41 Plt Count 204 K/mm3 (140-440) 05/26/21 04:41 Lymph % (Auto) 32.6 % (13.4-35.0) 05/26/21 04:41 [place] % (Auto) 13.6 % (0.0-7.3) H 05/26/21 04:41 Eos % (Auto) 2.0 % (0.0-4.3) 05/26/21 04:41 Baso % (Auto) 0.8 % (0.0-1.8) 05/26/21 04:41 Lymph # (Auto) 1.7 K/mm3 (1.2-5.4) 05/26/21 04:41 [place] # (Auto) 0.7 K/mm3 (0.0-0.8) 05/26/21 04:41 Eos # (Auto) 0.1 K/mm3 (0.0-0.4) 05/26/21 04:41 Baso # (Auto) 0.0 K/mm3 (0.0-0.1) 05/26/21 04:41 Seg Neutrophils % 51.0 % (40.0-70.0) 05/26/21 04:41 Seg Neutrophils # 2.6 K/mm3 (1.8-7.7) 05/26/21 04:41 PT 14.6 Sec. (12.2-14.9) 05/24/21 12:27 INR 1.03 (0.87-1.13) 05/24/21 12:27 APTT 32.6 Sec. (24.2-36.6) 05/24/21 12:27 Sodium 134 mmol/L (137-145) L D 05/26/21 04:41 Potassium 3.7 mmol/L (3.6-5.0) 05/26/21 04:41 Chloride 97.4 mmol/L (98-107) L 05/26/21 04:41 Carbon Dioxide 27 mmol/L (22-30) 05/26/21 04:41 Anion Gap 13 mmol/L 05/26/21 04:41 BUN 19 mg/dL (9-20) 05/26/21 04:41 Creatinine 1.2 mg/dL (0.8-1.3) 05/26/21 04:41 Estimated GFR > 60 ml/min 05/26/21 04:41 BUN/Creatinine Ratio 16 % 05/26/21 04:41 Glucose 90 mg/dL (75-100) 05/26/21 04:41 Calcium 8.4 mg/dL (8.4-10.2) 05/26/21 04:41 Total Bilirubin 1.00 mg/dL (0.1-1.2) 05/26/21 04:41 Direct Bilirubin < 0.2 mg/dL (0-0.2) 05/26/21 04:41 Indirect Bilirubin 0.8 mg/dL 05/26/21 04:41 AST 78 units/L (5-40) H 05/26/21 04:41 ALT 45 units/L (7-56) 05/26/21 04:41 Alkaline Phosphatase 86 units/L (35-129) 05/26/21 04:41 NT-Pro-B Natriuret Pep 42.82 pg/mL (0-450) 05/24/21 12:28 Total Protein 5.6 g/dL (6.3-8.2) L 05/26/21 04:41 Albumin 3.4 g/dL (3.9-5) L 05/26/21 04:41 Albumin/Globulin Ratio 1.5 % 05/26/21 04:41 Lipase 24 units/L (13-60) 05/24/21 12:23 Urine Color Yellow (Yellow) 05/24/21 Unknown Urine Turbidity Clear (Clear) 05/24/21 Unknown Urine pH 6.0 (5.0-7.0) 05/24/21 Unknown Ur Specific [place] 1.021 (1.003-1.030) 05/24/21 Unknown Urine Protein 30 mg/dl mg/dL (Negative) 05/24/21 Unknown Urine Glucose (UA) Neg mg/dL (Negative) 05/24/21 Unknown Urine Ketones 20 mg/dL (Negative) 05/24/21 Unknown Urine Blood Mod (Negative) 05/24/21 Unknown Urine Nitrite Neg (Negative) 05/24/21 Unknown Urine Bilirubin Neg (Negative) 05/24/21 Unknown Urine Urobilinogen < 2.0 mg/dL (<2.0) 05/24/21 Unknown Ur Leukocyte Esterase Neg (Negative) 05/24/21 Unknown Urine WBC (Auto) 1.0 /HPF (0.0-6.0) 05/24/21 Unknown Urine RBC (Auto) 2.0 /HPF (0.0-6.0) 05/24/21 Unknown U Epithel Cells (Auto) < 1.0 /HPF (0-13.0) 05/24/21 Unknown Urine Mucus Few /HPF 05/24/21 Unknown Urine Opiates Screen Negative 05/25/21 19:00 Urine Methadone Screen Negative 05/25/21 19:00 Ur Barbiturates Screen Negative 05/25/21 19:00 Ur Phencyclidine Scrn Negative 05/25/21 19:00 Ur Amphetamines Screen Negative 05/25/21 19:00 U Benzodiazepines Scrn Negative 05/25/21 19:00 Urine Cocaine Screen Negative 05/25/21 19:00 U Marijuana (THC) Screen Positive 05/25/21 19:00 Drugs of Abuse Note Disclamer 05/25/21 19:00 Hepatitis A IgM Ab Non-reactive (NonReactive) 05/24/21 13:09 Hep Bs Antigen Nonreactive (Negative) 05/24/21 13:09 Hep B Core IgM Ab Non-reactive (NonReactive) 05/24/21 13:09 Hepatitis C Antibody Non-reactive (NonReactive) 05/24/21 13:09 Monoscreen Negative (Negative) 05/24/21 13:09 [place]/IV: Voiding Method Toilet Active Medications - Current Medications Current Medications: Generic Name Dose Route Start Last Admin Trade Name Freq PRN Reason Stop Dose Admin Acetaminophen 650 mg 05/25/21 02:05 05/26/21 10:49 Acetaminophen 325 Mg Tab PO 650 mg Q4H PRN Administration Pain MILD(1-3)/Fever >100.5/KELLY Divalproex Sodium 250 mg 05/25/21 03:00 05/26/21 10:[address] 250 Mg Tab PO Not Given BID KATERIN Heparin Sodium (Porcine) 5,000 unit 05/25/21 02:45 05/26/21 10:51 Heparin 5,000 Unit/1 Ml Vial SUB-Q Not Given Q12HR KATERIN Dextrose/Sodium Chloride 1,000 mls @ 125 mls/hr 05/25/21 03:00 05/26/21 02:33 D5ns IV 125 mls/hr DIRECT KATERIN Administration Multivitamins 1 each 05/27/21 10:00 Multivitamins ,Therapeutic Tab PO QDAY KATERIN Ondansetron HCl 4 mg 05/25/21 02:05 05/25/21 21:55 Ondansetron 4 Mg/2 Ml Inj IV 4 mg Q8H PRN Administration Nausea And Vomiting Pantoprazole Sodium 40 mg 05/27/21 07:30 Pantoprazole 40 Mg Tab PO QDAC KATERIN Promethazine HCl 25 mg 05/25/21 02:04 Promethazine 25 Mg Tab PO Q6HR PRN Nausea Risperidone 1 mg 05/25/21 03:00 05/26/21 10:48 Risperidone 1 Mg Tab PO 1 mg BID KATERIN Administration Sertraline HCl 50 mg 05/25/21 10:00 05/26/21 10:48 Sertraline 50 Mg Tab PO 50 mg QDAY KATERIN Administration Sodium Chloride 10 ml 05/25/21 03:00 05/26/21 10:48 Sodium Chloride 0.9% 10 Ml Flush Syringe IV 10 ml BID KATERIN Administration Sodium Chloride 10 ml 05/25/21 02:05 Sodium Chloride 0.9% 10 Ml Flush Syringe IV PRN PRN LINE FLUSH
--- NOTE | 2021-05-26 14:59 | Discharge Summary ---
Providers - Providers Date of Admission: 05/24/21 18:00 Date of discharge: 05/26/21 Attending physician: MAYUR ABRAHAM 05/25/21 02:05 Consult to Physician [CONS] Routine Comment: Consulting Provider: LUBNA LO Physician Instructions: Reason For Exam: xenia 05/25/21 02:39 Consult to Physician [CONS] Routine Comment: Consulting Provider: LUBNA LO Physician Instructions: Reason For Exam: Severe vomiting 05/25/21 08:16 Consult to Physician [CONS] Routine Comment: Consulting Provider: JUAN MIGUEL MORILLO Physician Instructions: Reason For Exam: Intractable nausea and vomiting with elevated LFTs Primary care physician: ASTRONOMY PROFESSOR Hospitalization Condition: Fair Hospital course: 25-year-old male with history of mental health disease on Depakote Zoloft and Risperdal comes in for vomiting for the past 10 days. Nausea and vomiting with eating and patient presents for he has diffuse abdominal pain. Vomiting about 6-8 times a day. Patient states he has not eaten for 1 week and unable to keep anything down. Patient is on Motrin. Denies diarrhea. No fever or chills. No exposure to COVID. Vaccination status not known. -- possible gastritis, admits to using Motrin but denies excess alcohol use. Current Visit: Yes Status: Acute IV Protonix initiated GI evaluation noted and appreciated Recommended regular diet --Intractable nausea and vomiting Current Visit: Yes Status: Acute Urinary screen positive for marijuana, other possible etiologies No NSAIDs. GI consult requested IV Zofran Reglan, IV Protonix for now IV fluids for now No nausea since since placed n.p.o. Resume diet as tolerated Tests CT abdomen and pelvis with contrast; no acute abnormality noted Abdominal ultrasound increased cortical echogenicity of the right kidney suggesting medical renal disease No significant abnormality Chest x-ray; no acute findings, right aortic arch is suspected --XENIA (acute kidney injury) Current Visit: Yes Status: Acute IV fluids for now Vasomotor nephropathy --Dehydration Current Visit: Yes Status: Acute IV fluids for now --Hyponatremia Current Visit: Yes Status: Acute Probably secondary to persistent vomiting IV normal saline, improving Osmolarity and osmolality ordered Nephrology consulted Monitor LFTs daily --Transaminitis with elevated bilirubin Current Visit: Yes Status: Acute CT abdomen unremarkable kidney and liver. Hepatitis serology normal. Etiology unclear Ordered liver/gallbladder ultrasound Consulted GI. --history of mental health disorder Stable, continue home meds Final Discharge Diagnosis (Prints w/discharge instructions): Acute gastritis resolved. Intractable nausea vomiting resolved. Acute kidney injury vasomotor nephropathy resolved. Hyponatremia improved. Dehydration resolved. Transaminitis improved. Mild malnutrition. Psych disorder Core Measure Documentation - Palliative Care Palliative Care/ Comfort Measures: Not Applicable - Core Measures Any of the following diagnoses?: none Exam - Constitutional Vitals: Temp Pulse Resp BP Pulse Ox 98.3 F 57 L 20 114/81 98 05/26/21 08:20 05/26/21 10:00 05/26/21 08:20 05/26/21 08:20 05/26/21 08:20 Plan Diet: regular Additional Instructions: If you have worsening symptoms contact MD or go to emergency room as needed. Diet as tolerated. Follow-up primary care physician in 3 to 5 days. Follow GI per schedule Follow up with: NILAY COLLIER MD [Primary Care Provider] - 3-5 Days JANA ROGERS MD [Staff Physician] - 14 Days Prescriptions: Pantoprazole [Protonix TAB] 40 mg PO QDAC #30 tablet Ondansetron [Zofran Odt] 4 mg PO Q8HR #20 tab.[email or web address]
[2021-05-27] MEDS: D5W/0.9% NACL 1,000 ML IV SCH
[2021-05-27 04:17] VITALS: BP 134/84
[2021-05-27] MEDS ORDERED: PANTOPRAZOLE 40 MG TAB PO SCH (07:30)
[2021-05-27] MEDS ORDERED: MULTIVITAMINS ,THERAPEUTIC TAB PO SCH (10:00)
--- NOTE | 2021-05-27 10:46 | Progress Note ---
Assessment and Plan Impression: * ilda * hyponatremia * volume depletion * nausea and emesis Plan: * ivfs * Na is better today * daily lytes and strict i/os * avoid nephrotoxins * adv diet as tolerate * will follow labs peripherally, ok to dc home Subjective Date of service: 05/27/21 Principal diagnosis: Abnl LFT/Vomiting Interval history: events noted labs and chart reviewed Objective - Exam Narrative Exam: primary team exam noted - Vital Signs Vital signs: Vital Signs - 12hr 05/26/21 05/27/21 05/27/21 22:58 02:31 03:54 Temperature 98.3 F 98.2 F Pulse Rate 64 66 Respiratory 16 16 Rate Blood Pressure 101/66 134/84 O2 Sat by Pulse 92 98 97 Oximetry - Lab 05/26/21 04:41 05/26/21 04:41 Most recent lab results Calcium 8.4 mg/dL (8.4-10.2) 05/26/21 04:41 Medications & Allergies - Medications Allergies/Adverse Reactions: Allergies No Known Allergies Allergy (Verified 05/25/21 15:14) Home Medications: Home Medications Medication Instructions Recorded Confirmed Last Taken Type Divalproex [Marcia Robertson] 250 mg PO BID #60 tablet 02/04/21 05/25/21 Unknown Rx Ondansetron [Zofran Odt] 4 mg PO Q8HR #20 tab.rapdis 05/27/21 Unknown Rx Pantoprazole [Protonix TAB] 40 mg PO QDAC #30 tablet 05/27/21 Unknown Rx Sertraline [Zoloft] 50 mg PO QDAY #20 tablet 05/27/21 Unknown Rx risperiDONE [RisperDAL] 1 mg PO BID #20 tablet 05/27/21 Unknown Rx
== END 2021-05-27 09:45 | disposition home or self-care (01) | DRG 391 ==
LOC: ED 11:05 → 4A 18:00
PROVIDERS: ADMIT Internal Medicine; ATTEND Internal Medicine
DX: K29.00 Acute gastritis without bleeding (principal); N17.0 Acute kidney failure with tubular necrosis; E87.1 Hypo-osmolality and hyponatremia; E44.1 Mild protein-calorie malnutrition; K21.9 Gastro-esophageal reflux disease without esophagitis; E86.0 Dehydration; D75.1 Secondary polycythemia; Z68.23 Body mass index [BMI] 23.0-23.9, adult
CPT/HCPCS: 36415; 71046; 74177; 76705; 80048; 80053; 80074; 80076; 80307; 81001; 83690; 83880; 85025; 85610; 85730; 86308; G0378; J3490; Q0162; C9113; J1644; J2270; J2405; J3010; J7030; J7042; Q9967

== ENCOUNTER 2021-07-26 17:54 | Inpatient (IN) | payer SELFPAY ==
[2021-07-26] MEDS ORDERED: PANTOPRAZOLE 40 MG INJ IV ONE (18:48)
[2021-07-26] MEDS ORDERED: SODIUM CHLORIDE 0.9% 1000 ML 1,000 ML IV ONE (18:48)
[2021-07-26] MEDS ORDERED: HALOPERIDOL LACTATE 5 MG/1 ML INJ IM ONE (18:49)
[2021-07-26] MEDS ORDERED: LACTATED RINGERS 1,000 ML IV ONE (18:49)
--- NOTE | 2021-07-26 18:50 | Emergency Department Report ---
ED General Adult HPI - General Chief complaint: Anxiety Stated complaint: CAN'T EAT WITH MEDICATIONS Time Seen by Provider: 07/26/21 18:22 Source: patient, RN notes reviewed, old records reviewed Mode of arrival: Ambulatory Limitations: No Limitations - History of Present Illness Initial comments: The patient is a 25-year-old gentleman, with a history of cannabis consumption, and presumed history of cannabinoid hyperemesis syndrome, who presents to the ER today with a complaint abdominal cramping, nausea vomiting, inability to tolerate liquid feeds. Last marijuana ingestion 1 week ago. Presented to this hospital for similar symptoms in May of this year. CT scan of the abdomen pelvis at that time was unremarkable for acute findings. Right upper quadrant ultrasound was essentially unremarkable. Denies dysuria, testicular pain. [place] improved with haloperidol, and IV fluids. No relief at home with hot bath, hot shower. -: Gradual, days(s) Location: abdomen Quality: aching Consistency: constant Improves with: none, medication Worsens with: eating - Related Data Previous Rx's Medication Instructions Recorded Last Taken Type Divalproex [Marcia Robertson] 250 mg PO BID #60 tablet 02/04/21 Unknown Rx Ondansetron [Zofran Odt] 4 mg PO Q8HR #20 tab.rapdis 05/27/21 Unknown Rx Pantoprazole [Protonix TAB] 40 mg PO QDAC #30 tablet 05/27/21 Unknown Rx Sertraline [Zoloft] 50 mg PO QDAY #20 tablet 05/27/21 Unknown Rx risperiDONE [RisperDAL] 1 mg PO BID #20 tablet 05/27/21 Unknown Rx Allergies Allergy/AdvReac Type Severity Reaction Status Date / Time No Known Allergies Allergy Verified 05/25/21 15:14 ED Review of Systems ROS: Stated complaint: CAN'T EAT WITH MEDICATIONS Other details as noted in HPI Constitutional: malaise, weakness. denies: fever Eyes: denies: eye discharge Respiratory: denies: cough, shortness of breath Cardiovascular: denies: chest pain Gastrointestinal: abdominal pain, nausea, vomiting. denies: diarrhea Genitourinary: denies: dysuria Neurological: weakness Psychiatric: anxiety ED Past Medical Hx - Past Medical History Hx GERD: Yes Additional medical history: mental health - Social History Smoking Status: Unknown if ever smoked - Medications Home Medications: Home Medications Medication Instructions Recorded Confirmed Last Taken Type Divamyproex [Depakote Dr] 250 mg PO BID #60 tablet 02/04/21 05/25/21 Unknown Rx Ondansetron [Zofran Odt] 4 mg PO Q8HR #20 tab.rapdis 05/27/21 Unknown Rx Pantoprazole [Protonix TAB] 40 mg PO QDAC #30 tablet 05/27/21 Unknown Rx Sertraline [Zoloft] 50 mg PO QDAY #20 tablet 05/27/21 Unknown Rx risperiDONE [RisperDAL] 1 mg PO BID #20 tablet 05/27/21 Unknown Rx ED Physical Exam - General Limitations: No Limitations General appearance: alert, anxious - Head Head exam: Present: atraumatic, normocephalic - Eye Eye exam: Present: normal appearance, EOMI. Absent: nystagmus - ENT ENT exam: Present: normal exam, normal orophraynx, mucous membranes moist, normal external ear exam - Neck Neck exam: Present: normal inspection, full ROM. Absent: tenderness, meningismus - Respiratory Respiratory exam: Present: normal lung sounds bilaterally. Absent: respiratory distress, wheezes, rales, rhonchi, stridor, decreased breath sounds - Cardiovascular Cardiovascular Exam: Present: normal rhythm, tachycardia, normal heart sounds. Absent: bradycardia, irregular rhythm, systolic murmur, diastolic murmur, rubs, gallop - GI/Abdominal GI/Abdominal exam: Present: soft, normal bowel sounds. Absent: distended, tenderness, guarding, rebound, rigid, pulsatile mass - Rectal Rectal exam: Present: deferred - Extremities Exam Extremities exam: Present: normal inspection, full ROM, other (2+ pulses noted in the bilateral upper and lower extremities. There is no palpable cord. negative Homans sign. Muscular compartments are soft. The pelvis is stable.). Absent: pedal edema, calf tenderness - Back Exam Back exam: Present: normal inspection, full ROM. Absent: tenderness, CVA tenderness (R), CVA tenderness (L), paraspinal tenderness, vertebral tenderness - Neurological Exam Neurological exam: Present: alert, oriented X3, normal gait, other (No facial droop. Tongue midline. Extraocular movements intact bilaterally. Facial sensation intact to light touch in V1, V2, V3 distribution bilaterally. 5 and a 5 strength in 4 extremities. Sensation intact to light touch in 4 extremities.). Absent: motor sensory deficit - Psychiatric Psychiatric exam: Present: anxious - Skin Skin exam: Present: warm, dry, intact, normal color. Absent: rash ED Course Vital Signs 07/26/21 18:03 Temperature 97.3 F L Pulse Rate 105 H Respiratory 18 Rate Blood Pressure 126/82 [Right] O2 Sat by Pulse 97 Oximetry - Reevaluation(s) Reevaluation #1: 07/26/21 23:49 Hyponatremia is likely due to hypovolemic hyponatremia ED Medical Decision Making - Lab Data Result diagrams: 07/26/21 19:51 07/26/21 19:51 Vital Signs 07/26/21 18:03 Temperature 97.3 F L Pulse Rate 105 H Respiratory 18 Rate Blood Pressure 126/82 [Right] O2 Sat by Pulse 97 Oximetry Lab Results 07/26/21 07/26/21 07/26/21 Range/Units 19:51 19:51 19:51 WBC 13.5 H (4.5-11.0) K/mm3 RBC 6.08 H (3.65-5.03) M/mm3 Hgb 19.1 H (11.8-15.2) gm/dl Hct 56.7 H (35.5-45.6) % MCV 93 (84-94) fl MCH 32 (28-32) pg MCHC 34 (32-34) % RDW 14.2 (13.2-15.2) % Plt Count 240 (140-440) K/mm3 Lymph % (Auto) 8.1 L (13.4-35.0) % [place] % (Auto) 7.2 (0.0-7.3) % Eos % (Auto) 0.1 (0.0-4.3) % Baso % (Auto) 0.5 (0.0-1.8) % Lymph # (Auto) 1.1 L (1.2-5.4) K/mm3 [place] # (Auto) 1.0 H (0.0-0.8) K/mm3 Eos # (Auto) 0.0 (0.0-0.4) K/mm3 Baso # (Auto) 0.1 (0.0-0.1) K/mm3 Seg Neutrophils % 84.1 H (40.0-70.0) % Seg Neutrophils # 11.4 H (1.8-7.7) K/mm3 Sodium 126 L (137-145) mmol/L Potassium 4.0 (3.6-5.0) mmol/L Chloride 84.6 L (98-107) mmol/L Carbon Dioxide 21 L (22-30) mmol/L Anion Gap 24 mmol/L BUN 60 H (9-20) mg/dL Creatinine 2.3 H (0.8-1.3) mg/dL Estimated GFR 42 ml/min BUN/Creatinine Ratio 26 % Glucose 134 H (75-100) mg/dL Calcium 10.3 H (8.4-10.2) mg/dL Magnesium 3.00 H (1.7-2.3) mg/dL Total Bilirubin 2.80 H (0.1-1.2) mg/dL Direct Bilirubin 0.4 H (0-0.2) mg/dL Indirect Bilirubin 2.4 mg/dL AST 80 H (5-40) units/L ALT 30 (7-56) units/L Alkaline Phosphatase 124 (35-129) units/L Total Creatine Kinase 4134 H (55-170) units/L Total Protein 8.8 H (6.3-8.2) g/dL Albumin 5.3 H (3.9-5) g/dL Albumin/Globulin Ratio 1.5 % Lipase 15 (13-60) units/L TSH (0.270-4.200) mlU/mL Salicylates < 0.3 L (2.8-20.0) mg/dL Acetaminophen (10.0-30.0) ug/mL 07/26/21 07/26/21 Range/Units 19:51 19:51 WBC (4.5-11.0) K/mm3 RBC (3.65-5.03) M/mm3 Hgb (11.8-15.2) gm/dl Hct (35.5-45.6) % MCV (84-94) fl MCH (28-32) pg MCHC (32-34) % RDW (13.2-15.2) % Plt Count (140-440) K/mm3 Lymph % (Auto) (13.4-35.0) % [place] % (Auto) (0.0-7.3) % Eos % (Auto) (0.0-4.3) % Baso % (Auto) (0.0-1.8) % Lymph # (Auto) (1.2-5.4) K/mm3 [place] # (Auto) (0.0-0.8) K/mm3 Eos # (Auto) (0.0-0.4) K/mm3 Baso # (Auto) (0.0-0.1) K/mm3 Seg Neutrophils % (40.0-70.0) % Seg Neutrophils # (1.8-7.7) K/mm3 Sodium (137-145) mmol/L Potassium (3.6-5.0) mmol/L Chloride (98-107) mmol/L Carbon Dioxide (22-30) mmol/L Anion Gap mmol/L BUN (9-20) mg/dL Creatinine (0.8-1.3) mg/dL Estimated GFR ml/min BUN/Creatinine Ratio % Glucose (75-100) mg/dL Calcium (8.4-10.2) mg/dL Magnesium (1.7-2.3) mg/dL Total Bilirubin (0.1-1.2) mg/dL Direct Bilirubin (0-0.2) mg/dL Indirect Bilirubin mg/dL AST (5-40) units/L ALT (7-56) units/L Alkaline Phosphatase (35-129) units/L Total Creatine Kinase (55-170) units/L Total Protein (6.3-8.2) g/dL Albumin (3.9-5) g/dL Albumin/Globulin Ratio % Lipase (13-60) units/L TSH 0.984 (0.270-4.200) mlU/mL Salicylates (2.8-20.0) mg/dL Acetaminophen 5.0 L (10.0-30.0) ug/mL - EKG Data 07/26/21 23:45 The EKG is interpreted at 19: 07 Sinus rhythm, rate 80 bpm. Borderline leftward axis deviation, high left ventricular voltage, unremarkable intervals, normal P wave axis. This is an abnormal EKG. This is not a STEMI - Radiology Data Radiology results: pending, report reviewed, image reviewed Imaging studies from May 2021 are reviewed and appreciated - Medical Decision Making Differential diagnosis, including but not limited to: Dehydration, cannabinoid hyperemesis syndrome, renal insufficiency, rhabdomyolysis Assessment and plan: 25-year-old gentleman, with probable cannabinoid hyperemesis syndrome, likely experiencing exacerbation of underlying cannabinoid hyperemesis syndrome, manifest by nausea, vomiting, difficulty tolerating liquid feeds. He denies testicular pain, chest pain, and irritative/obstructive urinary symptoms. Abdomen is soft and benign, without rebound, guarding or peritoneal signs with distracted examination. Leukocytosis is likely a stress reaction. Patient has renal insufficiency, with rhabdomyolysis, AST ALT unremarkable at this time. Elevated bilirubin reviewed and appreciated. He is not jaundiced or icteric. He had a similar presentation a few months ago. Have recommended admission to the medical service for fluids and supportive care. He is agreeable to this plan of care. He felt improved after IV fluids and haloperidol. Hospital physician, Dr. Vianca Monsivais to admit to [facility] Critical care attestation.: If time is entered above; I have spent that time in minutes in the direct care of this critically ill patient, excluding procedure time. ED Disposition Clinical Impression: Hyponatremia, Renal insufficiency, Dehydration, XENIA (acute kidney injury), Rhabdomyolysis, Marijuana use Disposition: ADMITTED INPATIENT Is pt being admited?: Yes Does the pt Need Aspirin: No Condition: Good
[2021-07-26 20:11] LABS: Basophils # (Auto) 0.1 K/mm3 (0.0-0.1); Basophils % (Auto) 0.5 % (0.0-1.8); Eosinophils % (Auto) 0.1 % (0.0-4.3); Hematocrit 56.7 % (35.5-45.6); Hemoglobin 19.1 gm/dl (11.8-15.2); Lymphocytes # (Auto) 1.1 K/mm3 (1.2-5.4); Lymphocytes % (Auto) 8.1 % (13.4-35.0); Mean Corpuscular HGB Conc 34 % (32-34); Mean Corpuscular Volume 93 fl (84-94); Monocytes % (Auto) 7.2 % (0.0-7.3); Platelet Count 240 K/mm3 (140-440); Red Blood Count 6.08 M/mm3 (3.65-5.03); Red Cell Distribution Width 14.2 % (13.2-15.2)
[2021-07-26 20:25] LABS: Albumin 5.3 g/dL (3.9-5); Bilirubin,Direct 0.4 mg/dL (0-0.2); Calcium 10.3 mg/dL (8.4-10.2)
[2021-07-26] MEDS ORDERED: LACTATED RINGERS 3,000 ML IV ONE (21:56)
[2021-07-26] MEDS ORDERED: MAGNESIUM HYDROXIDE (MOM) ORAL LIQD UDC PO PRN (22:49)
[2021-07-26] MEDS ORDERED: MORPHINE 2 MG/1 ML INJ IV PRN (22:49)
[2021-07-26] MEDS ORDERED: MORPHINE 4 MG/1 ML INJ IV PRN (22:49)
[2021-07-26] MEDS ORDERED: ONDANSETRON 4 MG/2 ML INJ IV PRN (22:49)
[2021-07-26] MEDS ORDERED: ACETAMINOPHEN 325 MG TAB PO PRN (22:49)
--- NOTE | 2021-07-26 23:00 | History and Physical Report ---
History of Present Illness Date of examination: 07/26/21 Date of admission: 07/26/2021 Chief complaint: Nausea and Vomiting History of present illness: 25-year-old male with known history of cannabis abuse and cannabinoid hyperemesis syndrome presents to the emergency room today complaining of nausea and vomiting with associated abdominal cramping. Patient has not been able to tolerate oral intake over the past few days. Last use of marijuana was about a week ago. Patient denies any fever chills, no chest pain or shortness of breath, no headache or dizziness and no diaphoresis. Patient had presented with similar complaints a few months ago. Work-up at that time was unremarkable. Work-up today, significant findings were that of creatinine kinase of 4134, hyponatremia 126, BUN of 60 and creatinine of 2.3. Leukocytosis of 13.5, hemoglobin of 19.1 and hematocrit of 56.7. Patient started on IV fluid, antiemetic and analgesic medication. Past History Past Medical History: GERD, other (Mental health) Past Surgical History: No surgical history Social history: other (Uses Marijuana) Family history: no significant family history Medications and Allergies Allergies Allergy/AdvReac Type Severity Reaction Status Date / Time No Known Allergies Allergy Verified 05/25/21 15:14 Home Medications Medication Instructions Recorded Confirmed Last Taken Type Divalproex Dr [Marcia Robertson] 250 mg PO BID #60 tablet 02/04/21 05/25/21 Unknown Rx Ondansetron [Zofran Odt] 4 mg PO Q8HR #20 tab.rapdis 05/27/21 Unknown Rx Pantoprazole [Protonix TAB] 40 mg PO QDAC #30 tablet 05/27/21 Unknown Rx Sertraline [Zoloft] 50 mg PO QDAY #20 tablet 05/27/21 Unknown Rx risperiDONE [RisperDAL] 1 mg PO BID #20 tablet 05/27/21 Unknown Rx Active Meds: Active Medications Acetaminophen (Acetaminophen 325 Mg Tab) 650 mg PO Q4H PRN PRN Reason: Pain MILD(1-3)/Fever >100.5/KELLY Lactated Ringer's (Lactated Ringers) 3,000 mls @ 999 mls/hr IV BOLUS ONE Stop: 07/27/21 00:56 Sodium Chloride (Nacl 0.9% 1000 Ml) 1,000 mls @ 125 mls/hr IV DIRECT KATERIN Magnesium Hydroxide (Magnesium Hydroxide (Mom) Oral Liqd Udc) 30 ml PO Q4H PRN PRN Reason: Constipation Morphine Sulfate (Morphine 2 Mg/1 Ml Inj) 2 mg IV Q4H PRN PRN Reason: Pain, Moderate (4-6) Morphine Sulfate (Morphine 4 Mg/1 Ml Inj) 4 mg IV Q4H PRN PRN Reason: Pain , Severe (7-10) Ondansetron HCl (Ondansetron 4 Mg/2 Ml Inj) 4 mg IV Q8H PRN PRN Reason: Nausea And Vomiting Sodium Chloride (Sodium Chloride 0.9% 10 Ml Flush Syringe) 10 ml IV BID KATERIN Sodium Chloride (Sodium Chloride 0.9% 10 Ml Flush Syringe) 10 ml IV PRN PRN PRN Reason: LINE FLUSH Review of Systems Constitutional: no fever, no chills Ears, nose, mouth and throat: no nasal congestion, no sore throat Cardiovascular: no chest pain, no palpitations Respiratory: no cough, no shortness of breath Gastrointestinal: abdominal pain, nausea, vomiting Genitourinary Male: no dysuria, no hematuria, no flank pain Musculoskeletal: no neck pain, no low back pain Integumentary: no rash, no pruritis Neurological: no headaches, no confusion Psychiatric: no anxiety, no depression Endocrine: no polyphagia, no polydipsia, no polyuria, no nocturia Exam - Constitutional Vitals: Temp Pulse Resp BP Pulse Ox 97.3 F L 105 H 18 126/82 97 07/26/21 18:03 07/26/21 18:03 07/26/21 18:03 07/26/21 18:03 07/26/21 18:03 General appearance: Present: no acute distress, well-nourished - EENT Eyes: Present: PERRL, EOM intact. Absent: scleral icterus ENT: hearing intact, clear oral mucosa, dentition normal - Neck Neck: Present: supple, normal ROM - Respiratory Respiratory effort: normal Respiratory: bilateral: CTA - Cardiovascular Rhythm: regular Heart Sounds: Present: S1 & S2. Absent: gallop, systolic murmur, diastolic murmur, rub, click - Extremities Extremities: no ischemia, pulses intact, pulses symmetrical, No edema, normal temperature, normal color, Full ROM Peripheral Pulses: within normal limits - Abdominal General gastrointestinal: Present: soft, non-tender, non-distended, normal bowel sounds. Absent: mass - Integumentary Integumentary: Present: clear, warm, dry, normal turgor. Absent: rash - Musculoskeletal Musculoskeletal: strength equal bilaterally - Psychiatric Psychiatric: appropriate mood/affect, intact judgment & insight, memory intact, cooperative - Neurologic Neurologic: CNII-XII intact, no focal deficits, moves all extremities Results - Labs CBC & Chem 7: 07/26/21 19:51 07/26/21 19:51 Labs: Abnormal lab results 07/26/21 07/26/21 07/26/21 Range/Units 19:51 19:51 19:51 WBC 13.5 H (4.5-11.0) K/mm3 RBC 6.08 H (3.65-5.03) M/mm3 Hgb 19.1 H (11.8-15.2) gm/dl Hct 56.7 H (35.5-45.6) % Lymph % (Auto) 8.1 L (13.4-35.0) % Lymph # (Auto) 1.1 L (1.2-5.4) K/mm3 [place] # (Auto) 1.0 H (0.0-0.8) K/mm3 Seg Neutrophils % 84.1 H (40.0-70.0) % Seg Neutrophils # 11.4 H (1.8-7.7) K/mm3 Sodium 126 L (137-145) mmol/L Chloride 84.6 L (98-107) mmol/L Carbon Dioxide 21 L (22-30) mmol/L BUN 60 H (9-20) mg/dL Creatinine 2.3 H (0.8-1.3) mg/dL Glucose 134 H (75-100) mg/dL Calcium 10.3 H (8.4-10.2) mg/dL Magnesium 3.00 H (1.7-2.3) mg/dL Total Bilirubin 2.80 H (0.1-1.2) mg/dL Direct Bilirubin 0.4 H (0-0.2) mg/dL AST 80 H (5-40) units/L Total Creatine Kinase 4134 H (55-170) units/L Total Protein 8.8 H (6.3-8.2) g/dL Albumin 5.3 H (3.9-5) g/dL Salicylates < 0.3 L (2.8-20.0) mg/dL Acetaminophen (10.0-30.0) ug/mL 07/26/21 Range/Units 19:51 WBC (4.5-11.0) K/mm3 RBC (3.65-5.03) M/mm3 Hgb (11.8-15.2) gm/dl Hct (35.5-45.6) % Lymph % (Auto) (13.4-35.0) % Lymph # (Auto) (1.2-5.4) K/mm3 [place] # (Auto) (0.0-0.8) K/mm3 Seg Neutrophils % (40.0-70.0) % Seg Neutrophils # (1.8-7.7) K/mm3 Sodium (137-145) mmol/L Chloride (98-107) mmol/L Carbon Dioxide (22-30) mmol/L BUN (9-20) mg/dL Creatinine (0.8-1.3) mg/dL Glucose (75-100) mg/dL Calcium (8.4-10.2) mg/dL Magnesium (1.7-2.3) mg/dL Total Bilirubin (0.1-1.2) mg/dL Direct Bilirubin (0-0.2) mg/dL AST (5-40) units/L Total Creatine Kinase (55-170) units/L Total Protein (6.3-8.2) g/dL Albumin (3.9-5) g/dL Salicylates (2.8-20.0) mg/dL Acetaminophen 5.0 L (10.0-30.0) ug/mL Assessment and Plan - Patient Problems (1) Intractable nausea and vomiting Current Visit: No Status: Acute Plan to address problem: Possibly secondary to cannabis hyperemesis syndrome. Patient counseled against cannabis abuse. We will continue on antiemetic. (2) Acute abdominal pain Current Visit: No Status: Acute Plan to address problem: Possibly secondary to the intractable nausea and vomiting. Patient placed on IV analgesic medication with good relief. Patient had Haldol and IV fluid in the emergency room with significant improvement. (3) XENIA (acute kidney injury) Current Visit: Yes Status: Acute Plan to address problem: Possibly secondary to volume loss. We will continue on IV fluid. Consult will be placed to nephrology for further recommendations. (4) Dehydration Current Visit: Yes Status: Acute Plan to address problem: We will continue on IV fluid normal saline. Will monitor chemistry. (5) Hyponatremia Current Visit: Yes Status: Acute Plan to address problem: Possibly secondary to intractable nausea and vomiting. We will continue on IV normal saline and monitor chemistry. (6) Marijuana use Current Visit: Yes Status: Acute Plan to address problem: Patient counseled against marijuana abuse. (7) Rhabdomyolysis Current Visit: Yes Status: Acute Plan to address problem: We will continue on IV fluid and monitor creatinine kinase. (8) DVT prophylaxis Current Visit: No Status: Acute Plan to address problem: Patient will be placed on subcutaneous heparin. (9) Full code status Current Visit: Yes Status: Acute Plan to address problem: Patient is full code.
[2021-07-27] MEDS: HALOPERIDOL LACTATE 5 MG/1 ML INJ IM ONE ×2 (02:01→04:35)
[2021-07-27 06:00] LABS: Bacteria,Urine 1+ /HPF (Negative); Bilirubin,Urine NEG (Negative); Blood,Urine MOD (Negative); Color,Urine Yellow (Yellow); Mucus,Urine FEW /HPF; Protein,Urine <15 mg/dL mg/dL (Negative); RBC,Urine < 1.0 /HPF (0.0-6.0); Urobilinogen,Urine < 2.0 mg/dL (<2.0); WBC,Urine < 1.0 /HPF (0.0-6.0)
[2021-07-27 06:33] LABS: BUN/Creatinine Ratio 26; Blood Urea Nitrogen 41 mg/dL (9-20); Calcium 9.6 mg/dL (8.4-10.2); Hemolysis Index 5
--- NOTE | 2021-07-27 08:17 | Progress Note ---
Assessment and Plan Assessment and plan: #Intractable nausea and vomiting #Cannabis hyperemesis syndrome -counseled about importance of marijuana cessation due to repeated hospitalizations for same issue -continue PRN anti-emetics -patient able to tolerate diet #Acute kidney injury -secondary to vasomotor nephropathy from volume loss -SCr 2.3 -> 1.6 -will continue IVF rescucitation -Nephrology consulted, assistance appreciated #Acute abdominal pain-resolved -likely secondary to prolonged N/V #Dehydration #Volume depletion -likely secondary to N/V -will continue IVFs -patient encouraged to increase oral intake #Hyponatremia-improving -likely secondary to N/V -will continue IVFs -will continue to monitor #Rhabdomyolysis -CK 4134, will repeat -continue on IVFs #Marijuana dependence -patient counseled against marijuana abuse -patient denies recent use #Advanced care planning -Disease education conducted, care plan discussed, diagnoses discussed, prognosis discussed, and patient acknowledges understanding with care plan -Time: +30 min History Interval history: No acute vents overnight. Patient reports improvement in abdominal pain and no longer having nausea/vomiting. Has no complaints at this time. Hospitalist Physical - Physical exam Narrative exam: GENERAL: Thin male. In no acute distress. HEENT: Dry mucous membranes. NECK: Supple. CHEST/LUNGS: CTAB on room air HEART/CARDIOVASCULAR: Tachycardic. No murmur, rubs or gallops appreciated. ABDOMEN: +BS. NT/ND. SKIN: No rashes noted. NEURO: No focal motor deficit. Follows all commands. MUSCULOSKELETAL: No joint effusion EXTREMITIES: No cyanosis, clubbing or edema. PSYCH: Cooperative. - Constitutional Vitals: Temp Pulse Resp BP Pulse Ox 97.9 F 96 H 16 127/86 95 07/27/21 04:33 07/27/21 04:33 07/27/21 04:33 07/27/21 04:33 07/27/21 04:33 General appearance: Present: no acute distress, well-nourished Results - Labs CBC & Chem 7: 07/26/21 19:51 07/27/21 05:28 Labs: Laboratory Last Values WBC 13.5 K/mm3 (4.5-11.0) H 07/26/21 19:51 RBC 6.08 M/mm3 (3.65-5.03) H 07/26/21 19:51 Hgb 19.1 gm/dl (11.8-15.2) H 07/26/21 19:51 Hct 56.7 % (35.5-45.6) H 07/26/21 19:51 MCV 93 fl (84-94) 07/26/21 19:51 MCH 32 pg (28-32) 07/26/21 19:51 MCHC 34 % (32-34) 07/26/21 19:51 RDW 14.2 % (13.2-15.2) 07/26/21 19:51 Plt Count 240 K/mm3 (140-440) 07/26/21 19:51 Lymph % (Auto) 8.1 % (13.4-35.0) L 07/26/21 19:51 [place] % (Auto) 7.2 % (0.0-7.3) 07/26/21 19:51 Eos % (Auto) 0.1 % (0.0-4.3) 07/26/21 19:51 Baso % (Auto) 0.5 % (0.0-1.8) 07/26/21 19:51 Lymph # (Auto) 1.1 K/mm3 (1.2-5.4) L 07/26/21 19:51 [place] # (Auto) 1.0 K/mm3 (0.0-0.8) H 07/26/21 19:51 Eos # (Auto) 0.0 K/mm3 (0.0-0.4) 07/26/21 19:51 Baso # (Auto) 0.1 K/mm3 (0.0-0.1) 07/26/21 19:51 Seg Neutrophils % 84.1 % (40.0-70.0) H 07/26/21 19:51 Seg Neutrophils # 11.4 K/mm3 (1.8-7.7) H 07/26/21 19:51 Sodium 131 mmol/L (137-145) L 07/27/21 05:28 Potassium 3.6 mmol/L (3.6-5.0) 07/27/21 05:28 Chloride 91.8 mmol/L (98-107) L 07/27/21 05:28 Carbon Dioxide 24 mmol/L (22-30) 07/27/21 05:28 Anion Gap 19 mmol/L 07/27/21 05:28 BUN 41 mg/dL (9-20) H 07/27/21 05:28 Creatinine 1.6 mg/dL (0.8-1.3) H 07/27/21 05:28 Estimated GFR > 60 ml/min 07/27/21 05:28 BUN/Creatinine Ratio 26 % 07/27/21 05:28 Glucose 110 mg/dL (75-100) H 07/27/21 05:28 Calcium 9.6 mg/dL (8.4-10.2) 07/27/21 05:28 Magnesium 3.00 mg/dL (1.7-2.3) H 07/26/21 19:51 Total Bilirubin 2.80 mg/dL (0.1-1.2) H 07/26/21 19:51 Direct Bilirubin 0.4 mg/dL (0-0.2) H 07/26/21 19:51 Indirect Bilirubin 2.4 mg/dL 07/26/21 19:51 AST 80 units/L (5-40) H 07/26/21 19:51 ALT 30 units/L (7-56) 07/26/21 19:51 Alkaline Phosphatase 124 units/L (35-129) 07/26/21 19:51 Total Creatine Kinase 4134 units/L (55-170) H 07/26/21 19:51 Total Protein 8.8 g/dL (6.3-8.2) H 07/26/21 19:51 Albumin 5.3 g/dL (3.9-5) H 07/26/21 19:51 Albumin/Globulin Ratio 1.5 % 07/26/21 19:51 Lipase 15 units/L (13-60) 07/26/21 19:51 TSH 0.984 mlU/mL (0.270-4.200) 07/26/21 19:51 Urine Color Yellow (Yellow) 07/27/21 05:36 Urine Turbidity Clear (Clear) 07/27/21 05:36 Urine pH 6.0 (5.0-7.0) 07/27/21 05:36 Ur Specific [place] 1.014 (1.003-1.030) 07/27/21 05:36 Urine Protein <15 mg/dl mg/dL (Negative) 07/27/21 05:36 Urine Glucose (UA) Neg mg/dL (Negative) 07/27/21 05:36 Urine Ketones Neg mg/dL (Negative) 07/27/21 05:36 Urine Blood Mod (Negative) 07/27/21 05:36 Urine Nitrite Neg (Negative) 07/27/21 05:36 Urine Bilirubin Neg (Negative) 07/27/21 05:36 Urine Urobilinogen < 2.0 mg/dL (<2.0) 07/27/21 05:36 Ur Leukocyte Esterase Neg (Negative) 07/27/21 05:36 Urine WBC (Auto) < 1.0 /HPF (0.0-6.0) 07/27/21 05:36 Urine RBC (Auto) < 1.0 /HPF (0.0-6.0) 07/27/21 05:36 Urine Bacteria (Auto) 1+ /HPF (Negative) 07/27/21 05:36 Urine Mucus Few /HPF 07/27/21 05:36 Salicylates < 0.3 mg/dL (2.8-20.0) L 07/26/21 19:51 Acetaminophen 5.0 ug/mL (10.0-30.0) L 07/26/21 19:51 [place]/IV: Voiding Method Bedside Commode Active Medications - Current Medications Current Medications: Generic Name Dose Route Start Last Admin Trade Name Freq PRN Reason Stop Dose Admin Acetaminophen 650 mg 07/26/21 22:49 Acetaminophen 325 Mg Tab PO Q4H PRN Pain MILD(1-3)/Fever >100.5/KELLY Heparin Sodium (Porcine) 5,000 unit 07/27/21 06:00 Heparin 5,000 Unit/1 Ml Vial SUB-Q Q8HR KATERIN Sodium Chloride 1,000 mls @ 150 mls/hr 07/26/21 23:00 Nacl 0.9% 1000 Ml IV DIRECT KATERIN Magnesium Hydroxide 30 ml 07/26/21 22:49 Magnesium Hydroxide (Mom) Oral Liqd Udc PO Q4H PRN Constipation Morphine Sulfate 2 mg 07/26/21 22:49 Morphine 2 Mg/1 Ml Inj IV Q4H PRN Pain, Moderate (4-6) Morphine Sulfate 4 mg 07/26/21 22:49 Morphine 4 Mg/1 Ml Inj IV Q4H PRN Pain , Severe (7-10) Ondansetron HCl 4 mg 07/26/21 22:49 Ondansetron 4 Mg/2 Ml Inj IV Q8H PRN Nausea And Vomiting Sodium Chloride 10 ml 07/27/21 10:00 Sodium Chloride 0.9% 10 Ml Flush Syringe IV BID KATERIN Sodium Chloride 10 ml 07/26/21 22:49 Sodium Chloride 0.9% 10 Ml Flush Syringe IV PRN PRN LINE FLUSH
--- NOTE | 2021-07-27 10:10 | Electrocardiograph Report ---
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
--- NOTE | 2021-07-27 12:37 | Gastroenterology Consultation ---
History of Present Illness - Reason for Consult Consult date: 07/27/21 nausea/vomiting Requesting physician: YOSHI TREVINO - History of Present Illness 25-year-old male with known history of cannabis abuse and cannabinoid hyperemesis syndrome admitted overnight for intractable nausea/vomiting. GI consulted for n/V. Patient reports having cramping diffuse abdominal pain and nausea/vomiting x 4 days. No diarrhea, bleeding, melena, or fever/chills. No recent alcohol use. Reports last marijauna use 1 week ago. Recent admission in 05/2021 with similar presentation with elevated LFTs, that resolved. CT and US were unremarkable. Medication list reviewed. Work-up in the ED significant findings were that of creatinine kinase of 4134, hyponatremia 126, BUN of 60 and creatinine of 2.3. Leukocytosis of 13.5, hemoglobin of 19.1 and hematocrit of 56.7. Past History Past Medical History: GERD, other (Mental health) Past Surgical History: No surgical history Social history: other (Uses Marijuana) Family history: no significant family history Medications and Allergies Allergies Allergy/AdvReac Type Severity Reaction Status Date / Time No Known Allergies Allergy Verified 05/25/21 15:14 Home Medications Medication Instructions Recorded Confirmed Last Taken Type Divalproex Dr [Depakote Dr] 250 mg PO BID #60 tablet 02/04/21 07/27/21 Unknown Rx Ondansetron [Zofran Odt] 4 mg PO Q8HR #20 tab.rapdis 05/27/21 07/27/21 Unknown Rx Pantoprazole [Protonix TAB] 40 mg PO QDAC #30 tablet 05/27/21 07/27/21 Unknown Rx Sertraline [Zoloft] 100 mg PO QDAY 07/27/21 07/27/21 Unknown History risperiDONE [RisperDAL] 3 mg PO QHS 07/27/21 07/27/21 Unknown History Active Meds: Active Medications Acetaminophen (Acetaminophen 325 Mg Tab) 650 mg PO Q4H PRN PRN Reason: Pain MILD(1-3)/Fever >100.5/KELLY Heparin Sodium (Porcine) (Heparin 5,000 Unit/1 Ml Vial) 5,000 unit SUB-Q Q8HR KATERIN Sodium Chloride (Nacl 0.9% 1000 Ml) 1,000 mls @ 150 mls/hr IV DIRECT KATERIN Magnesium Hydroxide (Magnesium Hydroxide (Mom) Oral Liqd Udc) 30 ml PO Q4H PRN PRN Reason: Constipation Morphine Sulfate (Morphine 2 Mg/1 Ml Inj) 2 mg IV Q4H PRN PRN Reason: Pain, Moderate (4-6) Morphine Sulfate (Morphine 4 Mg/1 Ml Inj) 4 mg IV Q4H PRN PRN Reason: Pain , Severe (7-10) Ondansetron HCl (Ondansetron 4 Mg/2 Ml Inj) 4 mg IV Q8H PRN PRN Reason: Nausea And Vomiting Sodium Chloride (Sodium Chloride 0.9% 10 Ml Flush Syringe) 10 ml IV BID KATERIN Last Admin: 07/27/21 10:06 Dose: Not Given Sodium Chloride (Sodium Chloride 0.9% 10 Ml Flush Syringe) 10 ml IV PRN PRN PRN Reason: LINE FLUSH Review of Systems - Review of Systems All systems: negative Constitutional: no weight loss, no weight gain, no fever, no chills Ears, Nose, Throat: no decreased hearing Cardiovascular: no chest pain Gastrointestinal: abdominal pain, nausea, vomiting, no diarrhea, no constipation, no change in bowel habits, no BRBPR, no melena, no hematochezia Neurological: no weakness Psychiatric: no anxiety Endocrine: no cold intolerance Hematologic/Lymphatic: no easy bruising Allergic/Immunologic: no wheezing Exam - Constitutional Vital Signs: Temp Pulse Resp BP Pulse Ox 98.3 F 75 15 101/62 98 07/27/21 10:56 07/27/21 10:56 07/27/21 10:56 07/27/21 10:56 07/27/21 10:56 General appearance: no acute distress - EENT Eyes: EOM intact ENT: hearing intact - Respiratory Respiratory effort: normal - Cardiovascular Rhythm: regular Heart Sounds: Present: S1 & S2 - Gastrointestinal General gastrointestinal: Present: soft, non-tender, non-distended - Integumentary Integumentary: Present: clear, warm - Neurologic Neurological: alert and oriented x3 - Psychiatric Psychiatric: appropriate mood/affect - Labs CBC & Chem 7: 07/26/21 19:51 07/27/21 05:28 Lab Results: Laboratory Results - last 24 hr 07/26/21 07/26/21 07/26/21 19:51 19:51 19:51 WBC 13.5 H RBC 6.08 H Hgb 19.1 H Hct 56.7 H MCV 93 MCH 32 MCHC 34 RDW 14.2 Plt Count 240 Lymph % (Auto) 8.1 L [place] % (Auto) 7.2 Eos % (Auto) 0.1 Baso % (Auto) 0.5 Lymph # (Auto) 1.1 L [place] # (Auto) 1.0 H Eos # (Auto) 0.0 Baso # (Auto) 0.1 Seg Neutrophils % 84.1 H Seg Neutrophils # 11.4 H Sodium 126 L Potassium 4.0 Chloride 84.6 L Carbon Dioxide 21 L Anion Gap 24 BUN 60 H Creatinine 2.3 H Estimated GFR 42 BUN/Creatinine Ratio 26 Glucose 134 H Calcium 10.3 H Magnesium 3.00 H Total Bilirubin 2.80 H Direct Bilirubin 0.4 H Indirect Bilirubin 2.4 AST 80 H ALT 30 Alkaline Phosphatase 124 Total Creatine Kinase 4134 H Total Protein 8.8 H Albumin 5.3 H Albumin/Globulin Ratio 1.5 Lipase 15 TSH Urine Color Urine Turbidity Urine pH Ur Specific [place] Urine Protein Urine Glucose (UA) Urine Ketones Urine Blood Urine Nitrite Urine Bilirubin Urine Urobilinogen Ur Leukocyte Esterase Urine WBC (Auto) Urine RBC (Auto) Urine Bacteria (Auto) Urine Mucus Salicylates < 0.3 L Acetaminophen 07/26/21 07/26/21 07/27/21 19:51 19:51 05:28 WBC RBC Hgb Hct MCV MCH MCHC RDW Plt Count Lymph % (Auto) [place] % (Auto) Eos % (Auto) Baso % (Auto) Lymph # (Auto) [place] # (Auto) Eos # (Auto) Baso # (Auto) Seg Neutrophils % Seg Neutrophils # Sodium 131 L Potassium 3.6 Chloride 91.8 L Carbon Dioxide 24 Anion Gap 19 BUN 41 H Creatinine 1.6 H Estimated GFR > 60 BUN/Creatinine Ratio 26 Glucose 110 H Calcium 9.6 Magnesium Total Bilirubin Direct Bilirubin Indirect Bilirubin AST ALT Alkaline Phosphatase Total Creatine Kinase Total Protein Albumin Albumin/Globulin Ratio Lipase TSH 0.984 Urine Color Urine Turbidity Urine pH Ur Specific [place] Urine Protein Urine Glucose (UA) Urine Ketones Urine Blood Urine Nitrite Urine Bilirubin Urine Urobilinogen Ur Leukocyte Esterase Urine WBC (Auto) Urine RBC (Auto) Urine Bacteria (Auto) Urine Mucus Salicylates Acetaminophen 5.0 L 07/27/21 05:36 WBC RBC Hgb Hct MCV MCH MCHC RDW Plt Count Lymph % (Auto) [place] % (Auto) Eos % (Auto) Baso % (Auto) Lymph # (Auto) [place] # (Auto) Eos # (Auto) Baso # (Auto) Seg Neutrophils % Seg Neutrophils # Sodium Potassium Chloride Carbon Dioxide Anion Gap BUN Creatinine Estimated GFR BUN/Creatinine Ratio Glucose Calcium Magnesium Total Bilirubin Direct Bilirubin Indirect Bilirubin AST ALT Alkaline Phosphatase Total Creatine Kinase Total Protein Albumin Albumin/Globulin Ratio Lipase TSH Urine Color Yellow Urine Turbidity Clear Urine pH 6.0 Ur Specific [place] 1.014 Urine Protein <15 mg/dl Urine Glucose (UA) Neg Urine Ketones Neg Urine Blood Mod Urine Nitrite Neg Urine Bilirubin Neg Urine Urobilinogen < 2.0 Ur Leukocyte Esterase Neg Urine WBC (Auto) < 1.0 Urine RBC (Auto) < 1.0 Urine Bacteria (Auto) 1+ Urine Mucus Few Salicylates Acetaminophen Assessment and Plan # Nausea/vomiting # Abdominal pain - likely 2/2 marijauna use vs cyclic vomiting syndrome. - similar presentation in 05/2020 with work up with CT and US unremarkable. had elevated LFTs that trended down with supportive care. - clinically improving. tolerating diet. - PPI Po - supportive care # Elevated LFTs - unclear etiology. - AST elevation likely 2/2 CK elevation. - RUQ US ordered. - monitor CMP and INR.
[2021-07-27] MEDS: SODIUM CHLORIDE 0.9% 1000 ML 1,000 ML IV SCH ×2 (13:24→22:45)
[2021-07-27] MEDS: HEPARIN 5,000 UNIT/1 ML VIAL SUB-Q SCH ×2 (13:24→22:46)
--- NOTE | 2021-07-27 14:42 | Consultation ---
History of Present Illness - Reason for Consult Consult date: 07/27/21 acute renal failure - History of Present Illness 25-year-old man with known history of cannabis abuse and cannabinoid hyperemesis syndrome presents with nauseaa and vomiting with associated abdominal cramping. Patient denies any fever chills, no chest pain or shortness of breath, no headache or dizziness and no diaphoresis. Denies any known history of kidney disease. Denies any use of creatine, workout supplements. Denies rigorous exercise. Only notes increase to risperidone. Noted to have creatinine kinase of 4134, hyponatremia 126, BUN of 60, and creatinine of 2.3 in ED. Notes that he still has nausea at time of consult. Past History Past Medical History: GERD, other (Mental health) Past Surgical History: No surgical history Social history: other (Uses Marijuana) Family history: no significant family history Medications and Allergies Allergies Allergy/AdvReac Type Severity Reaction Status Date / Time No Known Allergies Allergy Verified 05/25/21 15:14 Home Medications Medication Instructions Recorded Confirmed Last Taken Type Divalproex [Marcia Robertson] 250 mg PO BID #60 tablet 02/04/21 07/27/21 Unknown Rx Ondansetron [Zofran Odt] 4 mg PO Q8HR #20 tab.rapdis 05/27/21 07/27/21 Unknown Rx Pantoprazole [Protonix TAB] 40 mg PO QDAC #30 tablet 05/27/21 07/27/21 Unknown Rx Sertraline [Zoloft] 100 mg PO QDAY 07/27/21 07/27/21 Unknown History risperiDONE [RisperDAL] 3 mg PO QHS 07/27/21 07/27/21 Unknown History Active Meds: Active Medications Acetaminophen (Acetaminophen 325 Mg Tab) 650 mg PO Q4H PRN PRN Reason: Pain MILD(1-3)/Fever >100.5/KELLY Heparin Sodium (Porcine) (Heparin 5,000 Unit/1 Ml Vial) 5,000 unit SUB-Q Q8HR KATERIN Last Admin: 07/27/21 13:24 Dose: 5,000 unit Sodium Chloride (Nacl 0.9% 1000 Ml) 1,000 mls @ 150 mls/hr IV DIRECT KATERIN Last Admin: 07/27/21 13:24 Dose: 150 mls/hr Magnesium Hydroxide (Magnesium Hydroxide (Mom) Oral Liqd Udc) 30 ml PO Q4H PRN PRN Reason: Constipation Morphine Sulfate (Morphine 2 Mg/1 Ml Inj) 2 mg IV Q4H PRN PRN Reason: Pain, Moderate (4-6) Morphine Sulfate (Morphine 4 Mg/1 Ml Inj) 4 mg IV Q4H PRN PRN Reason: Pain , Severe (7-10) Ondansetron HCl (Ondansetron 4 Mg/2 Ml Inj) 4 mg IV Q8H PRN PRN Reason: Nausea And Vomiting Last Admin: 07/27/21 13:28 Dose: 4 mg Sodium Chloride (Sodium Chloride 0.9% 10 Ml Flush Syringe) 10 ml IV BID KATERIN Last Admin: 07/27/21 10:06 Dose: Not Given Sodium Chloride (Sodium Chloride 0.9% 10 Ml Flush Syringe) 10 ml IV PRN PRN PRN Reason: LINE FLUSH Review of Systems All systems: negative (as per HPI) Exam - Vital Signs Vital signs: Vital Signs Temp Pulse Resp BP Pulse Ox 97.3 F L 105 H 18 126/82 97 07/26/21 18:03 07/26/21 18:03 07/26/21 18:03 07/26/21 18:03 07/26/21 18:03 - General Appearance General appearance: well-developed, well-nourished EENT: ATNC Neck: Present: neck supple Respiratory: Clear to Ascultation Heart: regular, S1S2 Gastrointestinal: Present: normoactive bowel sounds Integumentary: no rash, warm and dry Neurologic: no focal deficit, alert and oriented x3 Results - Lab Results 07/26/21 19:51 07/27/21 05:28 Most recent lab results Calcium 9.6 mg/dL (8.4-10.2) 07/27/21 05:28 Magnesium 3.00 mg/dL (1.7-2.3) H 07/26/21 19:51 Assessment and Plan # Acute Kidney Injury: likely pre-renal + rhabdomyolysis, creatinine improving - continue IVF, po hydration - creatinine improving 2.3->1.6 - trend CK - defer full renal ultrasound, note right kidney WNL on abdominal ultrasound - defer serologies, urinalysis noted - renally dose medications - avoid nephrotoxins - no major risk factors for CKD # Rhabdomyolysis: unclear cause, note blood no RBCs on UA - IVF, trend CK # Hyponatremia: likely due to above, continue IVF. Sodium improving 126->131 # Nausea, Vomiting, Cannabis Hyperemesis - PRN anti-emetics - GI consult noted
--- NOTE | 2021-07-27 16:50 | Ultrasound Report ---
ULTRASOUND ABDOMEN, LIMITED INDICATION / CLINICAL INFORMATION: elevated liver enzymes. COMPARISON: Limited abdominal ultrasound 05/25/2021. FINDINGS: PANCREAS: Visualized portion shows no significant abnormality. AORTA: No significant abnormality. IVC: No significant abnormality. LIVER: The liver is normal in size measuring 13.7 cm with mildly echogenic appearance. Normal hepatop edal blood flow within the main portal vein. GALLBLADDER: Trace amount of sludge within the gallbladder. No evidence of gallstones, wall thickenin g, or pericholecystic fluid. BILE DUCTS: No significant abnormality. Common bile duct measures 2 mm. RIGHT KIDNEY: The right kidney measures 10.3 cm. Diffusely increased cortical echogenicity, unchange d. FREE FLUID: None. ADDITIONAL FINDINGS: None. IMPRESSION: 1. Mildly echogenic appearance of the liver, most commonly seen with mild steatosis. 2. Trace gallbladder sludge. 3. Findings suggestive of medical renal disease on the right, similar to previous exam. Scribed by: Macrina Valdes RDMS, HELENT, PASHA Scribed: 07/27/2021 3:33 PM I have reviewed the images, agree with this report, and edited this report as needed. Signer Name: Jose Goldstein MD Signed: 07/27/2021 4:45 PM Workstation Name: [id number]
[2021-07-27 17:11] LABS: Albumin 4.4 g/dL (3.9-5); Bilirubin,Direct 0.3 mg/dL (0-0.2); INR 1.02 (0.87-1.13)
[2021-07-27 17:21] VITALS: BP 100/62
[2021-07-28 05:23] LABS: Hemoglobin 14.7 gm/dl (11.8-15.2); Mean Corpuscular HGB Conc 34 % (32-34); Mean Corpuscular Volume 94 fl (84-94); Platelet Count 204 K/mm3 (140-440); Red Blood Count 4.58 M/mm3 (3.65-5.03)
[2021-07-28 05:33] LABS: Alanine Aminotransferase 37 units/L (7-56); Albumin 4.2 g/dL (3.9-5); BUN/Creatinine Ratio 16; Blood Urea Nitrogen 18 mg/dL (9-20); Calcium 9.2 mg/dL (8.4-10.2); Hemolysis Index 7
[2021-07-28] MEDS: SODIUM CHLORIDE 0.9% 1000 ML 1,000 ML IV SCH (06:25)
[2021-07-28] MEDS: HEPARIN 5,000 UNIT/1 ML VIAL SUB-Q SCH (06:26)
[2021-07-28] MEDS ORDERED: POTASSIUM CHLORIDE ER 20 MEQ TAB PO SCH (09:00)
--- NOTE | 2021-07-28 09:37 | Gastroenterology Progress Note ---
Assessment and Plan 1. Abdominal pain with n/v - improving, tolerated liquids, ? hyperemesis from marijuana. cont diet as tolerated and supportive care 3. abnormal liver enzymes - stable, US without signs of biliary dilatation, ? alcohol pattern but denies significant intake. trend labs, and f/u in gi clinic after discharge for further work-up/management based on trends pt reports improved sx's and wishes to go home. f/u in gi clinic in 2-3 weeks. will sign off, please call as needed. Subjective Date of service: 07/28/21 Principal diagnosis: abd pain, n/v Interval history: pt reports improved abd pain and n/v, no episodes of n/v this AM. tolerated liquids without issues. states he wants to go home. Objective - Constitutional Vitals: Temp Pulse Resp BP Pulse Ox 98.8 F 64 18 100/62 100 07/27/21 16:32 07/27/21 16:32 07/27/21 22:00 07/27/21 16:32 07/27/21 22:00 General appearance: no acute distress - Respiratory Respiratory effort: normal Respiratory: bilateral: CTA - Cardiovascular Rhythm: regular Heart Sounds: Present: S1 & S2 - Gastrointestinal General gastrointestinal: Present: soft, non-tender, non-distended - Labs CBC & Chem 7: 07/28/21 04:36 07/28/21 04:36 Labs: Laboratory Results - last 24 hr 07/27/21 07/27/21 07/28/21 15:13 15:13 04:36 WBC 6.5 RBC 4.58 Hgb 14.7 D Hct 43.0 D MCV 94 MCH 32 MCHC 34 RDW 14.0 Plt Count 204 PT 14.5 INR 1.02 Sodium Potassium Chloride Carbon Dioxide Anion Gap BUN Creatinine Estimated GFR BUN/Creatinine Ratio Glucose Calcium Total Bilirubin 3.50 H Direct Bilirubin 0.3 H Indirect Bilirubin 3.2 AST 115 H ALT 36 Alkaline Phosphatase 89 Total Creatine Kinase Total Protein 6.7 D Albumin 4.4 Albumin/Globulin Ratio 1.9 07/28/21 04:36 WBC RBC Hgb Hct MCV MCH MCHC RDW Plt Count PT INR Sodium 138 D Potassium 3.5 L Chloride 98.5 Carbon Dioxide 30 Anion Gap 13 BUN 18 Creatinine 1.1 Estimated GFR > 60 BUN/Creatinine Ratio 16 Glucose 84 Calcium 9.2 Total Bilirubin 3.20 H Direct Bilirubin Indirect Bilirubin AST 101 H ALT 37 Alkaline Phosphatase 80 Total Creatine Kinase 3940 H Total Protein 6.4 Albumin 4.2 Albumin/Globulin Ratio 1.9
--- NOTE | 2021-07-28 09:37 | Progress Note ---
Assessment and Plan # Acute Kidney Injury: likely pre-renal + rhabdomyolysis, creatinine improving and now normalized - can dc IVF, encourage po hydration - creatinine improving 2.3->1.6->1.1 - trend CK, improving as well - defer full renal ultrasound, note right kidney WNL on abdominal ultrasound - defer serologies, urinalysis noted - renally dose medications - avoid nephrotoxins - no major risk factors for CKD - no objection for discharge from renal standpoint with downtrending creatinine, CK- encourage po hydration, avoidance of drugs, will have outpatient XENIA follow up with repeat renal panel and CK # Rhabdomyolysis: unclear cause, note blood no RBCs on UA - IVF, trend CK while inpatient # Hyponatremia: likely due to above, continue IVF prn. Sodium improving 126->131->138 # Nausea, Vomiting, Cannabis Hyperemesis - PRN anti-emetics - GI consult noted Subjective Date of service: 07/28/21 Interval history: Patient notes feeling better, mild nausea still. Objective - Exam Narrative Exam: General appearance: well-developed, well-nourished EENT: ATNC Neck: Present: neck supple Respiratory: Clear to Ascultation Heart: regular, S1S2 Gastrointestinal: Present: normoactive bowel sounds Integumentary: no rash, warm and dry Neurologic: no focal deficit, alert and oriented x3 - Vital Signs Vital signs: Vital Signs - 12hr 07/27/21 22:00 Respiratory 18 Rate O2 Sat by Pulse 100 Oximetry - Lab 07/28/21 04:36 07/28/21 04:36 Most recent lab results Calcium 9.2 mg/dL (8.4-10.2) 07/28/21 04:36 Magnesium 3.00 mg/dL (1.7-2.3) H 07/26/21 19:51 Medications & Allergies - Medications Allergies/Adverse Reactions: Allergies No Known Allergies Allergy (Verified 05/25/21 15:14) Home Medications: Home Medications Medication Instructions Recorded Confirmed Last Taken Type Divalproex [Marcia Robertson] 250 mg PO BID #60 tablet 02/04/21 07/27/21 Unknown Rx Ondansetron [Zofran Odt] 4 mg PO Q8HR #20 tab.rapdis 05/27/21 07/27/21 Unknown Rx Pantoprazole [Protonix TAB] 40 mg PO QDAC #30 tablet 05/27/21 07/27/21 Unknown Rx Sertraline [Zoloft] 100 mg PO QDAY 07/27/21 07/27/21 Unknown History risperiDONE [RisperDAL] 3 mg PO QHS 07/27/21 07/27/21 Unknown History Active Medications: Generic Name Dose Route Start Last Admin Trade Name Freq PRN Reason Stop Dose Admin Acetaminophen 650 mg 07/26/21 22:49 Acetaminophen 325 Mg Tab PO Q4H PRN Pain MILD(1-3)/Fever >100.5/KELLY Heparin Sodium (Porcine) 5,000 unit 07/27/21 06:00 07/28/21 06:26 Heparin 5,000 Unit/1 Ml Vial SUB-Q 5,000 unit Q8HR KATERNI Administration Sodium Chloride 1,000 mls @ 150 mls/hr 07/26/21 23:00 07/28/21 06:25 Nacl 0.9% 1000 Ml IV 150 mls/hr DIRECT KATERIN Administration Magnesium Hydroxide 30 ml 07/26/21 22:49 Magnesium Hydroxide (Mom) Oral Liqd Udc PO Q4H PRN Constipation Morphine Sulfate 2 mg 07/26/21 22:49 Morphine 2 Mg/1 Ml Inj IV Q4H PRN Pain, Moderate (4-6) Morphine Sulfate 4 mg 07/26/21 22:49 Morphine 4 Mg/1 Ml Inj IV Q4H PRN Pain , Severe (7-10) Ondansetron HCl 4 mg 07/26/21 22:49 07/27/21 13:28 Ondansetron 4 Mg/2 Ml Inj IV 4 mg Q8H PRN Administration Nausea And Vomiting Potassium Chloride 40 meq 07/28/21 09:00 Potassium Chloride Er 20 Meq Tab PO 07/28/21 13:00 ONCE@0900 KATERIN Sodium Chloride 10 ml 07/27/21 10:00 07/27/21 22:48 Sodium Chloride 0.9% 10 Ml Flush Syringe IV 10 ml BID KATERIN Administration Sodium Chloride 10 ml 07/26/21 22:49 Sodium Chloride 0.9% 10 Ml Flush Syringe IV PRN PRN LINE FLUSH
--- NOTE | 2021-07-28 10:35 | Discharge Summary ---
Providers - Providers Date of Admission: 07/26/21 22:49 Date of discharge: 07/28/21 Attending physician: DORA MALDONADO MD 07/26/21 22:49 Consult to Physician [CONS] Routine Comment: Consulting Provider: JUAN MIGUEL MORILLO Physician Instructions: Reason For Exam: Intractable Nausea and Vomiting 07/27/21 07:11 Consult to Physician [CONS] Routine Comment: Consulting Provider: MILDRED SIMMS Physician Instructions: Reason For Exam: XENIA Primary care physician: JODIE BOSS Hospitalization Condition: Good Disposition: 30 STILL A PATIENT Exam - Constitutional Vitals: Temp Pulse Resp BP Pulse Ox 98.8 F 64 18 100/62 99 07/27/21 16:32 07/27/21 16:32 07/27/21 22:00 07/27/21 16:32 07/28/21 10:20 Plan Care Plan Goals: Please schedule an appointment with Dr. Boss at [facility] to establish primary care as soon as possible. Please schedule an appointment with Dr. Caputo, the clinical data management manager within 2 weeks. Follow up with: JODIE BOSS MD [Primary Care Provider] - 7 Days GALLITO CAPUTO MD [Staff Physician] - 14 Days
== END 2021-07-28 10:56 | disposition home or self-care (01) | DRG 683 ==
LOC: ED 17:54 → 3A 22:49
PROVIDERS: ADMIT Internal Medicine Geriatric Medicine; ATTEND Student in an Organized Health Care Education/Training Program
DX: N17.8 Other acute kidney failure (principal); E87.1 Hypo-osmolality and hyponatremia; M62.82 Rhabdomyolysis; R11.2 Nausea with vomiting, unspecified; E86.0 Dehydration; K21.9 Gastro-esophageal reflux disease without esophagitis; F12.288 Cannabis dependence with other cannabis-induced disorder
CPT/HCPCS: 36415; 76705; 80048; 80053; 80076; 80320; 81001; 82550; 83690; 83735; 84443; 85025; 85027; 85610; 87086; 93005; G0378; Q0162; C9113; G0480; J1630; J1644; J2405; J7030; J7120